=== PATIENT | female | born 1945 | race Caucasian/White ===

== ENCOUNTER → 2023-11-01 11:56 | Outpatient (ROUT) | payer MEDICARE, SELFPAY ==
[2023-11-01 12:18] LABS: Add Manual Diff / Slide Review NO; Basophils Absolute Auto 100 /uL (0-100); Eosinophils Absolute Auto 200 /uL (0-450); Eosinophils Percent Auto 2.3 % (2-4); Hematocrit 32.3 % (36-46); Hemoglobin 10.5 g/dL (12.0-16.0); Lymphocytes Absolute Auto 2100 /uL (1100-4500); Lymphocytes Percent Auto 26.9 % (25-40); Mean Corpuscular HGB Conc 32.6 % (30-36); Mean Corpuscular Hemoglobin 25.3 PG (26-34); Mean Corpuscular Volume 77.5 fL (80-100); Monocytes Absolute Auto 700 /uL (0-900); Monocytes Percent Auto 8.8 % (3-14); Neutrophils Absolute Auto 4700 /uL (1500-7000); Platelet Count 255 X10^3/uL (150-400); Red Blood Cell Count 4.16 X10^6/uL (4.0-5.2); Red Cell Distribution Width 15.9 % (11.6-14.8); White Blood Cell Count 7.7 X10^3/uL (4.5-11.0)
[2023-11-01 12:55] LABS: BUN Creatinine Ratio 16.4 (6-22); Blood Urea Nitrogen 11 mg/dL (7-17); Calcium 8.6 mg/dL (8.4-10.2); Carbon Dioxide 27 mmol/L (22-32); Chloride 97 mmol/L (98-107); Estimated Glomerular Filt Rate > 60 mL/min (>60); Glucose 99 mg/dL (80-110); HEMOLYSIS < 15 (0-50); Sodium 133 mmol/L (137-145)
== END ==
PROVIDERS: Visit Provider Registered Nurse
DX: N17.0 Acute kidney failure with tubular necrosis (principal); D64.9 Anemia, unspecified; E87.6 Hypokalemia
CPT/HCPCS: 36415; 80048; 85025

== ENCOUNTER → 2023-11-23 06:10 | Outpatient (ROUT) | payer MEDICARE, SELFPAY ==
[2023-11-23 07:08] LABS: Add Manual Diff / Slide Review NO; Basophils Absolute Auto 200 /uL (0-100); Basophils Percent Auto 1.9 % (0-2); Eosinophils Absolute Auto 300 /uL (0-450); Eosinophils Percent Auto 3.6 % (2-4); Hematocrit 31.6 % (36-46); Hemoglobin 10.1 g/dL (12.0-16.0); Lymphocytes Absolute Auto 2500 /uL (1100-4500); Mean Corpuscular Hemoglobin 23.8 PG (26-34); Mean Corpuscular Volume 74.4 fL (80-100); Monocytes Absolute Auto 600 /uL (0-900); Monocytes Percent Auto 7.3 % (3-14); Neutrophils Absolute Auto 4700 /uL (1500-7000); Neutrophils Percent Auto 57.2 % (50-75); Platelet Count 231 X10^3/uL (150-400); Red Blood Cell Count 4.24 X10^6/uL (4.0-5.2); Red Cell Distribution Width 16.6 % (11.6-14.8); White Blood Cell Count 8.2 X10^3/uL (4.5-11.0)
[2023-11-23 07:25] LABS: BUN Creatinine Ratio 24.2 (6-22); Blood Urea Nitrogen 16 mg/dL (7-17); Carbon Dioxide 28 mmol/L (22-32); Chloride 99 mmol/L (98-107); Estimated Glomerular Filt Rate > 60 mL/min (>60); Glucose 104 mg/dL (80-110); HEMOLYSIS 39 (0-50); Magnesium 1.7 mg/dL (1.6-2.3); Sodium 134 mmol/L (137-145)
== END ==
PROVIDERS: Visit Provider Registered Nurse
DX: E87.8 Other disorders of electrolyte and fluid balance, not elsewhere classified (principal); D64.9 Anemia, unspecified; R60.9 Edema, unspecified
CPT/HCPCS: 36415; 80048; 83735; 85025

== ENCOUNTER → 2023-12-01 13:38 | Outpatient (CLI) | payer MEDICARE, MEDICAID, SELFPAY ==
--- NOTE | 2023-12-01 13:45 | DI.RAD.S_ITS ---
PROCEDURE: XR HIP W PEL IF DONE EVON MIN 4V INDICATIONS: HIP PAIN TECHNIQUE: AP pelvis with lateral view(s) of the left hip(s). COMPARISON: None. FINDINGS: Bones: Asymmetric severe left hip joint osteoarthritic changes are seen with loss of superior articular space, extensive subchondral sclerosis and cystic changes. Avascular necrosis of left femoral head cannot be excluded. Pelvic ring appears intact. No suspicious bony lesions. Degenerative disc disease in visualized lower lumbar spine is seen. Soft tissues: The visualized bowel gas pattern is normal. No suspicious soft tissue calcifications. IMPRESSION: Asymmetric severe left hip joint osteoarthritis. No acute fracture or dislocation. Cannot rule out avascular necrosis of femoral head. Dictated by: Jayson Chowdhury M.D. on 12/02/2023 at 9:08 Approved by: Jayson Chowdhury M.D. on 12/02/2023 at 9:09
== END ==
PROVIDERS: Referring Provider Nurse Practitioner Family; Visit Provider Nurse Practitioner Family
DX: M16.12 Unilateral primary osteoarthritis, left hip (principal); M25.552 Pain in left hip; M51.36 Other intervertebral disc degeneration, lumbar region
CPT/HCPCS: 73522

== ENCOUNTER → 2023-12-07 14:43 | Outpatient (ROUT) | payer MEDICARE, MEDICAID, SELFPAY ==
[2023-12-07 14:52] LABS: Appearance Urine UA CLEAR; Bilirubin Urine UA NEGATIVE (NEGATIVE); Color Urine UA YELLOW; Glucose Urine UA NEGATIVE (Negative); Ketones Urine UA NEGATIVE (NEGATIVE); Leukocyte Esterase Urine UA NEGATIVE (NEGATIVE); Nitrite Urine UA NEGATIVE (Negative); Occult Blood Urine UA NEGATIVE (Negative); Protein Urine UA NEGATIVE (Negative); Specific Gravity Urine UA <=1.005 (1.000-1.035); Urobilinogen Urine UA 0.2 E.U./dL (0.2)
[2023-12-07 15:02] LABS: Bacteria Urine None Seen; Culture Indicated Urine Cult Not Indicated; RBC Urine None Seen (0-5/HPF); Squamous Epithelial Cell Urine None Seen (0-5/HPF); Urine Volume 10mL (spun); WBC Urine None Seen (0-5/HPF); pH Urine UA 5.5 (4.5-8.0)
== END ==
PROVIDERS: Visit Provider Registered Nurse
DX: F03.90 Unspecified dementia, unspecified severity, without behavioral disturbance, psychotic disturbance, mood disturbance, and anxiety (principal)
CPT/HCPCS: 81001

== ENCOUNTER → 2023-12-21 07:49 | Outpatient (ROUT) | payer MEDICARE, MEDICAID, SELFPAY ==
[2023-12-21 08:21] LABS: Add Manual Diff / Slide Review NO; Basophils Absolute Auto 100 /uL (0-100); Basophils Percent Auto 1.3 % (0-2); Eosinophils Absolute Auto 600 /uL (0-450); Eosinophils Percent Auto 8.4 % (2-4); Hematocrit 29.7 % (36-46); Hemoglobin 9.6 g/dL (12.0-16.0); Lymphocytes Absolute Auto 1900 /uL (1100-4500); Lymphocytes Percent Auto 25.2 % (25-40); Mean Corpuscular HGB Conc 32.4 % (30-36); Mean Corpuscular Hemoglobin 23.3 PG (26-34); Mean Corpuscular Volume 71.9 fL (80-100); Monocytes Absolute Auto 800 /uL (0-900); Monocytes Percent Auto 10.4 % (3-14); Neutrophils Absolute Auto 4000 /uL (1500-7000); Neutrophils Percent Auto 54.7 % (50-75); Platelet Count 274 X10^3/uL (150-400); Red Blood Cell Count 4.13 X10^6/uL (4.0-5.2); Red Cell Distribution Width 16.6 % (11.6-14.8); White Blood Cell Count 7.4 X10^3/uL (4.5-11.0)
[2023-12-21 08:36] LABS: HEMOLYSIS < 15 (0-50)
[2023-12-21 08:46] LABS: Alanine Aminotransferase 12 IU/L (<35); Albumin 3.8 g/dL (3.5-5.0); Albumin Globulin Ratio 1.2 (1.0-2.8); Alkaline Phosphatase 119 U/L (38-126); Aspartate Aminotransferase 17 IU/L (14-36); BUN Creatinine Ratio 16.9 (6-22); Bilirubin Total 0.4 mg/dL (0.2-1.3); Blood Urea Nitrogen 12 mg/dL (7-17); Calcium 9.7 mg/dL (8.4-10.2); Carbon Dioxide 26 mmol/L (22-32); Chloride 101 mmol/L (98-107); Estimated Glomerular Filt Rate > 60 mL/min (>60); Globulin 3.1 g/dL (1.7-4.1); Glucose 127 mg/dL (80-110); Magnesium 1.8 mg/dL (1.6-2.3); Potassium 4.1 mmol/L (3.4-5.1); Sodium 135 mmol/L (137-145); Total Protein 6.9 g/dL (6.3-8.2)
[2023-12-21 11:24] LABS: Folate 13.9 ng/mL (2.76-20.0); Vitamin B12 426 pg/mL (239-931)
== END ==
PROVIDERS: Visit Provider Registered Nurse
DX: D64.9 Anemia, unspecified (principal); R41.0 Disorientation, unspecified; R60.9 Edema, unspecified; R63.5 Abnormal weight gain
CPT/HCPCS: 36415; 80053; 82607; 82746; 83735; 85025

== ENCOUNTER → 2024-01-02 13:41 | Outpatient (CLI) | payer MEDICARE, MEDICAID, SELFPAY ==
--- NOTE | 2024-01-02 13:43 | DI.CT.S_ITS ---
PROCEDURE: CT HIP RIGHT WITHOUT CON INDICATIONS: PAIN BILATERAL HIPS AND RIGHT KNEE TECHNIQUE: Noncontrast 3 mm axial sections acquired through the bony pelvis. Additional 3 mm axial sections acquired through the symptomatic hip joint, with coronal and sagittal reformats. COMPARISON: [facility], CT, CT HIP LEFT WITHOUT CON, 01/02/2024, 13:51. [facility], CR, XR HIP W PEL IF DONE EVON 3TO4V, 12/01/2023, 14:04. [facility], CR, XR PELVIS WITH LATERAL HIP LEFT, 09/04/2023, 6:25. [facility], CR, XR HIP 2 VIEWS LEFT, 08/17/2023, 18:20. [facility], CT, CT ABDOMEN PELVIS WITHOUT CONTRAST, 08/15/2023, 12:36. [facility], CR, XR HIP 2 VIEWS LEFT, 04/04/2022, 15:27. FINDINGS: Image quality: Excellent; please note that the following report is being dictated for both hips. Bones: No acute fracture or dislocation. 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 Sclerosis, subchondral cyst formation and mild subchondral collapse at the superolateral portion of the left femoral head (; ). Joints: Mild right hip osteoarthritis without a significant joint effusion. Severe left hip osteoarthritis with a moderate joint effusion. Mild bilateral sacroiliac joint and pubic symphysis osteoarthritis. Muscles: Moderate fatty atrophy of the visualized lower paraspinal musculature and the bilateral gluteus minimus musculature on (greater on the left; 3/37). Mild asymmetric atrophy of the left adductor longus (3/104). Tendons: Mild enthesopathy at the origin of the hamstring tendons greater on the right (3/85). Vessels: Moderate aortoiliac atherosclerosis. No aneurysmal dilatation of the visualized vasculature. Lymph nodes: No bilateral inguinal or lower retroperitoneal lymphadenopathy. Other soft tissues: The bilateral sciatic nerve contours are within normal limits. Other: Severe bony central canal stenosis at L3-L4 and L4-L5 (06/14-). The visualized intrapelvic contents are within normal limits. IMPRESSION: 1. 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 2. Cam morphology of the right proximal femur with secondary mild hip osteoarthritis. 3. Other chronic findings, noted above, including severe bony central canal stenosis at L3-L4 and L4-L5. Dictated by: Manpreet Dutton M.D. on 01/03/2024 at 12:45 Approved by: Manpreet Dutton M.D. on 01/03/2024 at 13:00
--- NOTE | 2024-01-02 13:43 | DI.CT.S_ITS ---
PROCEDURE: CT KNEE RIGHT WITHOUT CON INDICATIONS: PAIN BILATERAL HIPS AND RIGHT KNEE TECHNIQUE: Noncontrast 1-1.5 mm axial sections acquired from the mid-patella to the proximal tibia, with coronal and sagittal reformats. COMPARISON: None. FINDINGS: Image quality: Excellent. Bones: No acute fracture or dislocation of the right knee. Mild medial compartment predominant tricompartment osteoarthritis. Multiple small ossified intra-articular bodies in the anterior intercondylar notch, and in the posterior knee. Soft tissues: Large knee effusion. No popliteal cyst. Mild fatty atrophy of the posterior compartment of the distal thigh. Mild subcutaneous edema and skin thickening of the distal thigh. IMPRESSION: Mild medial compartment predominant tricompartment osteoarthritis. Multiple small ossified intra-articular bodies. Large knee effusion. Dictated by: Nerissa Villanueva M.D. on 01/03/2024 at 11:40 Approved by: Nerissa Villanueva M.D. on 01/03/2024 at 11:44
--- NOTE | 2024-01-02 13:43 | DI.CT.S_ITS ---
PROCEDURE: CT HIP LEFT WITHOUT CON INDICATIONS: PAIN BILATERAL HIPS AND RIGHT KNEE TECHNIQUE: Noncontrast 3 mm axial sections acquired through the bony pelvis. Additional 3 mm axial sections acquired through the symptomatic hip joint, with coronal and sagittal reformats. COMPARISON: [facility], CT, CT HIP RIGHT WITHOUT CON, 01/02/2024, 13:51. FINDINGS: Image quality: Excellent. Please see the CT right hip without contrast report for combined details regarding the CT hip exams. IMPRESSION: Please see the CT right hip without contrast report for combined details regarding the CT hip exams. Dictated by: Manpreet Dutton M.D. on 01/03/2024 at 13:00 Approved by: Manpreet Dutton M.D. on 01/03/2024 at 13:02
== END ==
PROVIDERS: Referring Provider Nurse Practitioner Family; Visit Provider Nurse Practitioner Family
DX: M16.0 Bilateral primary osteoarthritis of hip (principal); M17.11 Unilateral primary osteoarthritis, right knee; M25.461 Effusion, right knee; M25.452 Effusion, left hip; M46.1 Sacroiliitis, not elsewhere classified; I70.0 Atherosclerosis of aorta; M48.061 Spinal stenosis, lumbar region without neurogenic claudication; M25.551 Pain in right hip; M25.552 Pain in left hip; M25.561 Pain in right knee
CPT/HCPCS: 73700

== ENCOUNTER → 2024-01-18 06:28 | Outpatient (ROUT) | payer MEDICARE, MEDICAID, SELFPAY ==
[2024-01-18 08:22] LABS: Alanine Aminotransferase 14 IU/L (<35); Albumin 4.2 g/dL (3.5-5.0); Albumin Globulin Ratio 1.4 (1.0-2.8); Alkaline Phosphatase 143 U/L (38-126); Aspartate Aminotransferase 21 IU/L (14-36); BUN Creatinine Ratio 15.9 (6-22); Bilirubin Total 0.4 mg/dL (0.2-1.3); Blood Urea Nitrogen 10 mg/dL (7-17); Calcium 9.4 mg/dL (8.4-10.2); Carbon Dioxide 29 mmol/L (22-32); Chloride 96 mmol/L (98-107); Estimated Glomerular Filt Rate > 60 mL/min (>60); Globulin 2.9 g/dL (1.7-4.1); Glucose 127 mg/dL (80-110); HEMOLYSIS < 15 (0-50); Potassium 3.4 mmol/L (3.4-5.1); Sodium 134 mmol/L (137-145); Total Protein 7.1 g/dL (6.3-8.2)
== END ==
PROVIDERS: Visit Provider Registered Nurse
DX: R60.9 Edema, unspecified (principal)
CPT/HCPCS: 36415; 80053

== ENCOUNTER → 2024-03-21 06:30 | Outpatient (ROUT) | payer MEDICARE, MEDICAID, SELFPAY ==
[2024-03-21 08:26] LABS: BUN Creatinine Ratio 31.4 (6-22); Blood Urea Nitrogen 22 mg/dL (7-17); Calcium 9.6 mg/dL (8.4-10.2); Carbon Dioxide 32 mmol/L (22-32); Chloride 92 mmol/L (98-107); Estimated Glomerular Filt Rate > 60 mL/min (>60); Glucose 120 mg/dL (80-110); HEMOLYSIS < 15 (0-50); Sodium 133 mmol/L (137-145)
== END ==
PROVIDERS: Visit Provider Registered Nurse
DX: R60.9 Edema, unspecified (principal)
CPT/HCPCS: 36415; 80048

== ENCOUNTER → 2024-04-11 06:24 | Outpatient (ROUT) | payer MEDICARE, MEDICAID, SELFPAY ==
[2024-04-11 08:48] LABS: HEMOLYSIS < 15 (0-50); Magnesium 1.9 mg/dL (1.6-2.3); Potassium 2.9 mmol/L (3.4-5.1)
== END ==
PROVIDERS: Visit Provider Registered Nurse
DX: G31.84 Mild cognitive impairment of uncertain or unknown etiology (principal); M16.12 Unilateral primary osteoarthritis, left hip; M17.11 Unilateral primary osteoarthritis, right knee; F44.5 Conversion disorder with seizures or convulsions; K21.9 Gastro-esophageal reflux disease without esophagitis; K92.2 Gastrointestinal hemorrhage, unspecified
CPT/HCPCS: 36415; 83735; 84132

== ENCOUNTER → 2024-04-18 08:17 | Outpatient (ROUT) | payer MEDICARE, MEDICAID, SELFPAY ==
[2024-04-18 08:38] LABS: HEMOLYSIS < 15 (0-50); Magnesium 1.5 mg/dL (1.6-2.3)
== END ==
PROVIDERS: Visit Provider Registered Nurse
DX: E87.6 Hypokalemia (principal)
CPT/HCPCS: 36415; 83735; 84132

== ENCOUNTER → 2024-04-25 06:11 | Outpatient (ROUT) | payer MEDICARE, MEDICAID, SELFPAY ==
[2024-04-25 07:45] LABS: Hematocrit 29.9 % (36-46); Hemoglobin 9.5 g/dL (12.0-16.0); Mean Corpuscular HGB Conc 31.6 % (30-36); Mean Corpuscular Hemoglobin 22.8 PG (26-34); Mean Corpuscular Volume 72.1 fL (80-100); Platelet Count 254 X10^3/uL (150-400); Red Blood Cell Count 4.15 X10^6/uL (4.0-5.2); Red Cell Distribution Width 17.4 % (11.6-14.8); White Blood Cell Count 7.8 X10^3/uL (4.5-11.0)
[2024-04-25 08:00] LABS: BUN Creatinine Ratio 26.8 (6-22); Blood Urea Nitrogen 19 mg/dL (7-17); Calcium 9.5 mg/dL (8.4-10.2); Carbon Dioxide 32 mmol/L (22-32); Chloride 101 mmol/L (98-107); Estimated Glomerular Filt Rate > 60 mL/min (>60); Glucose 103 mg/dL (80-110); HEMOLYSIS < 15 (0-50); Magnesium 1.8 mg/dL (1.6-2.3); Potassium 3.6 mmol/L (3.4-5.1); Sodium 138 mmol/L (137-145)
[2024-04-25 08:29] LABS: Thyroid Stimulating Hormone 3.09 uIU/mL (0.47-4.68)
[2024-04-25 09:05] LABS: Folate 14.6 ng/mL (2.76-20.0)
== END ==
PROVIDERS: Visit Provider Registered Nurse
DX: F03.90 Unspecified dementia, unspecified severity, without behavioral disturbance, psychotic disturbance, mood disturbance, and anxiety (principal)
CPT/HCPCS: 36415; 80048; 82746; 83735; 84443; 85027

== ENCOUNTER → 2024-05-23 06:13 | Outpatient (ROUT) | payer MEDICARE, MEDICAID, SELFPAY ==
[2024-05-23 08:10] LABS: BUN Creatinine Ratio 31.8 (6-22); Blood Urea Nitrogen 21 mg/dL (7-17); Calcium 9.3 mg/dL (8.4-10.2); Carbon Dioxide 34 mmol/L (22-32); Chloride 92 mmol/L (98-107); Estimated Glomerular Filt Rate > 60 mL/min (>60); Glucose 110 mg/dL (80-110); HEMOLYSIS < 15 (0-50); Magnesium 1.8 mg/dL (1.6-2.3); Sodium 135 mmol/L (137-145)
== END ==
PROVIDERS: Visit Provider Registered Nurse
DX: R60.9 Edema, unspecified (principal)
CPT/HCPCS: 36415; 80048; 83735

== ENCOUNTER 2024-05-26 14:20 | Emergency (ER) | payer MEDICARE, MEDICAID, SELFPAY ==
[2024-05-26] VITALS (12 sets, daily range): BP systolic 121–169; BP diastolic 60–88; PULSE 78–95; RESP 16–27; TEMP 36.7–36.8; O2SAT 91–100; BMI 34.3
--- NOTE | 2024-05-26 14:26 | EKG_ITS ---
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
--- NOTE | 2024-05-26 14:26 | DI.RAD.S_ITS ---
PROCEDURE: XR CHEST 1V INDICATIONS: chest pain TECHNIQUE: One view of the chest was acquired. COMPARISON: [facility], CR, XR CHEST 1 VIEW, 08/15/2023, 18:58. [facility], CR, XR CHEST 1 VIEW, 08/17/2023, 8:47. FINDINGS: Surgical changes and devices: None. Lungs and pleura: Low lung volumes are noted. This causes a crowded appearance to the lung markings and limits evaluation. Mild interstitial prominence is seen. No pneumothorax or large pleural effusion can be seen. Mediastinum: The cardiac contours are moderately enlarged. The aorta demonstrates calcification and tortuosity. Bones and chest wall: No suspicious bony lesions. Age-appropriate bony degenerative changes are seen. Overlying soft tissues appear unremarkable. IMPRESSION: Cardiomegaly with interstitial prominence. Please consider CHF. Low lung volumes is seen, which limits evaluation. Dictated by: Guillermo Arzate M.D. on 05/26/2024 at 13:47 Approved by: Guillermo Arzate M.D. on 05/26/2024 at 13:48
[2024-05-26 14:49] LABS: Prothrombin Time 11.6 SECONDS (9.4-12.5)
[2024-05-26 14:52] LABS: PTT Partial Thromboplastin Tim 23 SECONDS (25.1-36.5)
[2024-05-26 14:56] LABS: Add Manual Diff / Slide Review NO; Basophils Absolute Auto 100 /uL (0-100); Basophils Percent Auto 1.1 % (0-2); Eosinophils Absolute Auto 200 /uL (0-450); Eosinophils Percent Auto 2.4 % (2-4); Hematocrit 31.9 % (36-46); Lymphocytes Absolute Auto 2000 /uL (1100-4500); Lymphocytes Percent Auto 19.9 % (25-40); Mean Corpuscular HGB Conc 31.5 % (30-36); Mean Corpuscular Hemoglobin 22.7 PG (26-34); Mean Corpuscular Volume 71.9 fL (80-100); Monocytes Absolute Auto 700 /uL (0-900); Monocytes Percent Auto 6.5 % (3-14); Neutrophils Absolute Auto 7100 /uL (1500-7000); Neutrophils Percent Auto 70.1 % (50-75); Red Blood Cell Count 4.43 X10^6/uL (4.0-5.2); Red Cell Distribution Width 17.1 % (11.6-14.8); White Blood Cell Count 10.1 X10^3/uL (4.5-11.0)
[2024-05-26 14:58] LABS: Alanine Aminotransferase 17 IU/L (<35); Albumin 4.5 g/dL (3.5-5.0); Albumin Globulin Ratio 1.2 (1.0-2.8); Alkaline Phosphatase 108 U/L (38-126); BUN Creatinine Ratio 25.6 (6-22); Bilirubin Total 0.4 mg/dL (0.2-1.3); Blood Urea Nitrogen 21 mg/dL (7-17); Calcium 9.4 mg/dL (8.4-10.2); Carbon Dioxide 27 mmol/L (22-32); Chloride 104 mmol/L (98-107); Creatine Kinase 89 U/L (30-135); Estimated Glomerular Filt Rate > 60 mL/min (>60); Globulin 3.7 g/dL (1.7-4.1); Glucose 108 mg/dL (80-110); Lipase 52 U/L (23-300); Magnesium 1.8 mg/dL (1.6-2.3); Sodium 140 mmol/L (137-145); Total Protein 8.2 g/dL (6.3-8.2)
[2024-05-26 15:00] LABS: Aspartate Aminotransferase 35 IU/L (14-36); HEMOLYSIS 73 (0-50); Platelet Count 266 X10^3/uL (150-400)
[2024-05-26 15:01] LABS: Potassium 4.6 mmol/L (3.4-5.1)
[2024-05-26 15:09] LABS: NT-proBNP (BNP-Adult 18+) 257 pg/mL (<450); Troponin I < 0.012 ng/mL (0.01-0.034)
--- NOTE | 2024-05-26 15:31 | ED_ITS ---
HPI - Chest Pain General Chief Complaint: Chest Pain Stated Complaint: painful urination/not acting herself/EMS Time Seen by Provider: 05/26/24 15:30 Source: patient and EMS Mode of arrival: EMS History of Present Illness HPI narrative: Patient is an 79-year-old female presenting to day from [facility] facility staff reports that she has not been acting herself more verbally combative she does have a history of UTIs. Patient does have some obvious shortness of breath which she declined. Patient reports that she was here because she is a pain. She does report that she was lower extremity edema she might have some increasing shortness of breath. She has not been here before but according to her med list she was on torsemide and albuterol as needed. Related Data Home Medications Medication Instructions Recorded Confirmed Unobtainable 12/18/23 12/18/23 Allergies Allergy/AdvReac Type Severity Reaction Status Date / Time No Known Drug Allergies Allergy Unverified 12/18/23 11:17 Patient History Social History Smoking Status: Smoker, status unknown Smoking Status: Smoker, status unknown Exam Initial Vital Signs Initial Vital Signs: Vital Signs Temperature 98.3 F 05/26/24 14:20 Pulse Rate 88 05/26/24 14:20 Respiratory Rate 16 05/26/24 14:20 Blood Pressure 123/60 05/26/24 14:20 Pulse Oximetry 97 05/26/24 14:20 Oxygen Delivery Method Room Air 05/26/24 14:20 GENERAL: Alert spicy 79-year-old female and in [no acute] distress. HEENT: Head atraumatic,EOMI, pupils reactive, face symmetric, [moist] mucous membranes CARDIOVASCULAR: Regular rate and rhythm without murmurs, rubs or gallops. RESPIRATORY: Breath sounds equal bilaterally, no wheezes rales or rhonchi. ABDOMEN: Soft, nontender. Normoactive bowel sounds all 4 quadrants. No guarding or rebound. EXTREMITIES: Normal range of motion, no clubbing. Bilateral +1 pitting edema Neurovascularly intact NEUROLOGICAL: Alert and oriented x4.Normal gait and speech. Cranial nerves II through XII grossly intact. [Good [id number], good [id number], strength equal bilaterally, no dysarthria or aphasia, sensation in tact to soft touch bilaterally, no visual changes, no facial droop] SKIN: Extremity dry legs some splotchy erythema very small areas Course Orders Ordered: ED Orders 05/26/24 14:26 XR chest 1V Stat EKG-12 Lead Stat 05/26/24 14:32 Complete Blood Count AUTO DIFF Stat Comprehensive Metabolic Panel Stat Lipase Stat Magnesium Stat NT-proBNP (BNP-Adult 18+) Stat PTT Partial Thromboplastin Magan Stat Prothrombin Time INR Stat Troponin & CK Cardiac Panel Stat Discontinued Medications Albuterol/Ipratropium (Albuterol/Ipratropium 3 Ml Ampul) 3 ml INH NOW ONE Stop: 05/26/24 16:06 Last Admin: 05/26/24 16:14 Dose: 3 ml Documented By: APRIL Aspirin (Aspirin 81 Mg Chew Tab) 324 mg PO NOW ONE Stop: 05/26/24 14:27 Last Admin: 05/26/24 14:37 Dose: Not Given Documented By: Furosemide (Furosemide 40 Mg/4 Ml Vial) 20 mg IV NOW ONE Stop: 05/26/24 15:32 Last Admin: 05/26/24 15:54 Dose: Not Given Documented By: BECKIE Torsemide (Torsemide 10 Mg Tablet) 40 mg PO NOW ONE Stop: 05/26/24 16:05 Last Admin: 05/26/24 16:19 Dose: 40 mg Documented By: BECKIE Vital Signs Vital signs: Vital Signs - 8 hr 05/26/24 14:20 05/26/24 14:22 05/26/24 14:23 Temperature 98.3 F Pulse Rate 88 92 H Respiratory Rate 16 Blood Pressure 123/60 123/60 Pulse Oximetry 97 96 Oxygen Delivery Method Room Air 05/26/24 14:23 05/26/24 14:47 05/26/24 14:53 Temperature Pulse Rate 92 H 93 H 93 H Respiratory Rate 27 H Blood Pressure Pulse Oximetry 95 97 Oxygen Delivery Method 05/26/24 14:53 05/26/24 15:12 05/26/24 15:13 Temperature Pulse Rate 93 H Respiratory Rate Blood Pressure 169/67 H 124/88 Pulse Oximetry 91 Oxygen Delivery Method 05/26/24 15:13 05/26/24 15:30 05/26/24 15:31 Temperature Pulse Rate 93 H 95 H Respiratory Rate 24 Blood Pressure 157/69 H Pulse Oximetry 97 94 Oxygen Delivery Method 05/26/24 15:31 05/26/24 16:00 05/26/24 16:22 Temperature Pulse Rate 95 H 90 90 Respiratory Rate 21 16 Blood Pressure Pulse Oximetry 95 95 96 Oxygen Delivery Method Room Air 05/26/24 17:24 Temperature 98.1 F Pulse Rate 78 Respiratory Rate 20 Blood Pressure 121/76 Pulse Oximetry 100 Oxygen Delivery Method Room Air MDM - Chest Pain Lab Data 05/26/24 14:32 05/26/24 14:32 Labs: Lab Results 05/26/24 Range/Units 14:32 WBC 10.1 (4.5-11.0) X10^3/uL RBC 4.43 (4.0-5.2) X10^6/uL Hgb 10.0 L (12.0-16.0) g/dL Hct 31.9 L (36-46) % MCV 71.9 L (80-100) fL MCH 22.7 L (26-34) PG MCHC 31.5 (30-36) % RDW 17.1 H (11.6-14.8) % Plt Count 266 (150-400) X10^3/uL Neut % (Auto) 70.1 (50-75) % Lymph % (Auto) 19.9 L (25-40) % Barnes % (Auto) 6.5 (3-14) % Eos % (Auto) 2.4 (2-4) % Baso % (Auto) 1.1 (0-2) % Neut # (Auto) 7100 H (3246-6592) /uL Lymph # (Auto) 2000 (8780-5755) /uL Barnes # (Auto) 700 (0-900) /uL Eos # (Auto) 200 (0-450) /uL Baso # (Auto) 100 (0-100) /uL PT 11.6 (9.4-12.5) SECONDS INR 1.0 (0.9-1.3) APTT 23 L (25.1-36.5) SECONDS Sodium 140 (137-145) mmol/L Potassium 4.6 D (3.4-5.1) mmol/L Chloride 104 (98-107) mmol/L Carbon Dioxide 27 (22-32) mmol/L BUN 21 H (7-17) mg/dL Creatinine 0.82 (0.52-1.04) mg/dL Estimated GFR > 60 (>60) mL/min BUN/Creatinine Ratio 25.6 H (6-22) Glucose 108 (80-110) mg/dL Calcium 9.4 (8.4-10.2) mg/dL Magnesium 1.8 (1.6-2.3) mg/dL Total Bilirubin 0.4 (0.2-1.3) mg/dL AST 35 (14-36) IU/L ALT 17 (<35) IU/L Alkaline Phosphatase 108 (38-126) U/L Total Creatine Kinase 89 (30-135) U/L Troponin I < 0.012 (0.01-0.034) ng/mL NT-Pro-B Natriuret Pep 257 (<450) pg/mL Total Protein 8.2 (6.3-8.2) g/dL Albumin 4.5 (3.5-5.0) g/dL Globulin 3.7 (1.7-4.1) g/dL Albumin/Globulin Ratio 1.2 (1.0-2.8) Lipase 52 (23-300) U/L Urine Dip Bedside Urine Glucose Negative Bedside Urine Bilirubin - Negative Bedside Urine Ketone - Negative Urine Specific [place] 1.015 Bedside Urine Occult Blood - Negative Bedside Urine pH 6.0 Bedside Urine Protein - Negative Bedside Urine Urobilinogen - Negative Bedside Urine Nitrite - Negative Bedside Urine Leukocytes - Negative Esterase Imaging Data Chest x-ray: Radiologist's Impression: PROCEDURE: XR CHEST 1V INDICATIONS: chest pain TECHNIQUE: One view of the chest was acquired. COMPARISON: [facility], CR, XR CHEST 1 VIEW, 08/15/2023, 18:58. [facility], CR, XR CHEST 1 VIEW, 08/17/2023, 8:47. FINDINGS: Surgical changes and devices: None. Lungs and pleura: Low lung volumes are noted. This causes a crowded appearance to the lung markings and limits evaluation. Mild interstitial prominence is seen. No pneumothorax or large pleural effusion can be seen. Mediastinum: The cardiac contours are moderately enlarged. The aorta demonstrates calcification and tortuosity. Bones and chest wall: No suspicious bony lesions. Age-appropriate bony degenerative changes are seen. Overlying soft tissues appear unremarkable. IMPRESSION: Cardiomegaly with interstitial prominence. Please consider CHF. Low lung volumes is seen, which limits evaluation. Dictated by: Guillermo Arzate M.D. on 05/26/2024 at 13:47 MDM Narrative Medical decision making narrative: Patient 79-year-old female resides at [facility]. Has not been here before. However according to med list she does take torsemide for edema she is on spironolactone as well. Also takes albuterol she reports having some shortness of breath but no chest pain. She is now quite anxious and wanting to go home. Not really sure why she was here. Blood work has been reviewed: No leukocytosis no anemia, no electrolyte abnormality creatinine 0.82 Troponin negative, BNP 257 Urinalysis negative for UTI Chest x-ray reviewed shows cardiomegaly and consider CHF EKGs does not show any evidence of ischemia I did call patient's DPOA Maame [phone]. She reports that patient was a little bit angry today she thought she might have a UTI. I have updated her on test results no evidence of UTI or abnormality. She was aware that patient is going back to [facility]. Discharge Plan Departure Patient Disposition: Home Clinical Impression: Bilateral edema of lower extremity Instructions: DI for Peripheral Edema -- Bilateral Activity Restrictions/Additional Instructions: *You have been diagnosed with lower extremity edema *What to do: At this time elevate your legs as much as possible No evidence of UTI *Continue to take medications as directed Take all of your medications as prescribed, you did get 1 extra dose of torsemide here in the ED *Follow up with your primary care provider in 2-3 days or call [phone] *Return to ER if you should have increasing confusion chest pain difficulty breathing or any new, worsening or concerning symptoms Prescriptions: No Action Unobtainable Stand Alone Forms: Patient Portal/API/Survey
[2024-05-26] MEDS: ALBUTEROL/IPRATROPIUM 3 ML AMPUL INH (16:14)
[2024-05-26] MEDS: TORSEMIDE 10 MG TABLET 40 MG PO (16:19)
--- NOTE | 2024-05-26 16:39 | PC.NURSE ---
Agnieszka refused to order picker pt; attempted to contact pt's POA = no answer. Pt confused; attempting BLS transport home.
--- NOTE | 2024-05-26 16:53 | PC.NURSE ---
Pt reports SOB, feet itching, hx of uti, edema in lower extremities .. unable to reach [facility] for further collateral. Pt ambulates short distances with minimal assistance. GCS 14-- pt alert to person place. Unaware of date.
== END 2024-05-26 17:35 | disposition home or self-care (01) ==
PROVIDERS: Emergency Provider Emergency Medicine
DX: R60.0 Localized edema (principal); R06.02 Shortness of breath; I51.7 Cardiomegaly
CPT/HCPCS: 36415; 71045; 80053; 81003; 82550; 83690; 83735; 83880; 84484; 85025; 85610; 85730; 93005; 93010; 94640; 99284; J1940

== ENCOUNTER 2024-05-28 19:16 | Emergency (ER) | payer MEDICARE, MEDICAID, SELFPAY ==
[2024-05-28 19:17] VITALS: BP 161/69; PULSE 80; RESP 20; TEMP 36.8; O2SAT 92; BMI 34.7
[2024-05-28] MEDS: ONDANSETRON 4 MG/2 ML INJ IV (19:55)
[2024-05-28 20:04] LABS: Add Manual Diff / Slide Review NO; Basophils Absolute Auto 100 /uL (0-100); Basophils Percent Auto 0.9 % (0-2); Eosinophils Absolute Auto 100 /uL (0-450); Eosinophils Percent Auto 1.5 % (2-4); Hematocrit 31.9 % (36-46); Lymphocytes Absolute Auto 1500 /uL (1100-4500); Lymphocytes Percent Auto 15.3 % (25-40); Mean Corpuscular HGB Conc 31.2 % (30-36); Mean Corpuscular Hemoglobin 22.5 PG (26-34); Mean Corpuscular Volume 72.1 fL (80-100); Monocytes Absolute Auto 800 /uL (0-900); Monocytes Percent Auto 8.1 % (3-14); Neutrophils Absolute Auto 7400 /uL (1500-7000); Neutrophils Percent Auto 74.2 % (50-75); Platelet Count 265 X10^3/uL (150-400); Red Blood Cell Count 4.43 X10^6/uL (4.0-5.2); White Blood Cell Count 9.9 X10^3/uL (4.5-11.0)
[2024-05-28 20:07] LABS: Alanine Aminotransferase 17 IU/L (<35); Albumin 4.5 g/dL (3.5-5.0); Albumin Globulin Ratio 1.2 (1.0-2.8); Alkaline Phosphatase 108 U/L (38-126); Aspartate Aminotransferase 30 IU/L (14-36); BUN Creatinine Ratio 22.4 (6-22); Bilirubin Total 0.4 mg/dL (0.2-1.3); Blood Urea Nitrogen 19 mg/dL (7-17); Calcium 9.3 mg/dL (8.4-10.2); Carbon Dioxide 30 mmol/L (22-32); Chloride 102 mmol/L (98-107); Estimated Glomerular Filt Rate > 60 mL/min (>60); Globulin 3.7 g/dL (1.7-4.1); Glucose 108 mg/dL (80-110); HEMOLYSIS 35 (0-50); Potassium 4.3 mmol/L (3.4-5.1); Sodium 140 mmol/L (137-145); Total Protein 8.2 g/dL (6.3-8.2)
[2024-05-28 20:29] VITALS: PULSE 97; RESP 16; O2SAT 92
[2024-05-28 20:30] VITALS: BP 184/72; PULSE 93; RESP 16; O2SAT 92
--- NOTE | 2024-05-28 20:48 | ED_ITS ---
HPI - Altered Mental Status General Chief Complaint: Altered Mental Status Stated Complaint: AMS Time Seen by Provider: 05/28/24 20:48 Source: EMS Mode of arrival: EMS History of Present Illness HPI narrative: 79-year-old female brought in from facility via EMS for possible seizure-like activity. According to the staff at [facility] they state that they saw her with jerking like movements for 30 seconds unsure if she was just ?sleeping or if she was having seizure-like activity. States it lasted no more than 30 seconds according to medics they were told that she came right back to, no confusion after back to baseline, at time of evaluation patient not complaining of any headache visual disturbances chest pain shortness breath fever chills nausea vomiting abdominal pain or any other GI/ symptoms. She actually states that she feels ?drunk but denies drinking any alcohol. Related Data Home Medications Medication Instructions Recorded Confirmed Unobtainable 12/18/23 12/18/23 Allergies Allergy/AdvReac Type Severity Reaction Status Date / Time No Known Drug Allergies Allergy Unverified 12/18/23 11:17 Review of Systems Review of Systems Narrative: General: Positive seizure-like activity, Denies fever, chills, weight loss HEENT: Denies headache, eye drainage, eye irritation, head trauma, sore throat, voice change Cardiovascular: Denies any chest pain, palpitations, shortness of breath, tachycardia Respiratory: Denies any shortness of breath, cough, wheeze, stridor GI/: Denies any abdominal pain, nausea, vomiting, diarrhea, bright red blood per rectum, melanotic stools, urinary frequency, urinary retention, dysuria, hematuria MSK: Denies any joint pain, muscle pains, swelling Skin: Denies any rashes, lesions, discoloration Neuro: Denies any headache, lightheadedness, dizziness, fainting, weakness Psych: Denies SI/HI Patient History Social History Smoking Status: Never smoker Smoking Status: Never smoker Exam Narrative Exam Narrative: General: Cooperative, comfortable, well-developed, not in acute distress HEENT: Normocephalic, atraumatic, PERRLA, normal sclera, eyelids normal, Neck: Active full range of motion, atraumatic Chest: Normal to inspection, negative crepitus, no overlying erythema ecchymosis Respiratory: Normal respiratory effort, not in acute respiratory distress, clear to auscultation bilaterally negative cough, wheeze, tachypnea, rhonchi, rales Cardiology: Regular rate rhythm negative gallop, murmur, rubs GI/: Normal to inspection, soft, nonrigid, no tenderness to palpation, exam deferred MSK: Full range of active range of motion of all 4 extremities, atraumatic Skin: No rashes lesions noted Neuro: NIH of 0 no focal deficits noted Alert awake oriented x3, moves all 4 extremities spontaneously, cranial nerves intact, able to answer all questions appropriately follows commands appropriately Psych: Cooperative, negative suicidal or homicidal ideations Initial Vital Signs Initial Vital Signs: Vital Signs Temperature 98.2 F 05/28/24 19:17 Pulse Rate 80 05/28/24 19:17 Respiratory Rate 20 05/28/24 19:17 Blood Pressure 161/69 H 05/28/24 19:17 Pulse Oximetry 92 05/28/24 19:17 Oxygen Delivery Method Room Air 05/28/24 19:17 Course Orders Ordered: ED Orders 05/28/24 19:45 CBC Auto Diff [Complete Blood Count AUTO DIFF] Stat Comprehensive Metabolic Panel Stat 05/28/24 20:35 UA Complete [Urinalysis and Microscopic] Stat Discontinued Medications Ondansetron HCl (Ondansetron 4 Mg/2 Ml Inj) 4 mg IV NOW ONE Stop: 05/28/24 19:51 Last Admin: 05/28/24 19:55 Dose: 4 mg Documented By: LS Vital Signs Vital signs: Vital Signs - 8 hr 05/28/24 19:17 05/28/24 20:29 05/28/24 20:30 Temperature 98.2 F Pulse Rate 80 97 H 93 H Respiratory Rate 20 16 16 Blood Pressure 161/69 H Pulse Oximetry 92 92 92 Oxygen Delivery Method Room Air 05/28/24 20:30 Temperature Pulse Rate Respiratory Rate Blood Pressure 184/72 H Pulse Oximetry Oxygen Delivery Method MDM - Altered Mental Status Differential Diagnosis Differential diagnosis: Likely sepsis (Electrolyte abnormality, urinary tract infection,) Lab Data 05/28/24 19:45 05/28/24 19:45 Labs: Lab Results 05/28/24 05/28/24 Range/Units 19:45 20:35 WBC 9.9 (4.5-11.0) X10^3/uL RBC 4.43 (4.0-5.2) X10^6/uL Hgb 10.0 L (12.0-16.0) g/dL Hct 31.9 L (36-46) % MCV 72.1 L (80-100) fL MCH 22.5 L (26-34) PG MCHC 31.2 (30-36) % RDW 17.0 H (11.6-14.8) % Plt Count 265 (150-400) X10^3/uL Neut % (Auto) 74.2 (50-75) % Lymph % (Auto) 15.3 L (25-40) % [place] % (Auto) 8.1 (3-14) % Eos % (Auto) 1.5 L (2-4) % Baso % (Auto) 0.9 (0-2) % Neut # (Auto) 7400 H (2329-6348) /uL Lymph # (Auto) 1500 (8412-5624) /uL [place] # (Auto) 800 (0-900) /uL Eos # (Auto) 100 (0-450) /uL Baso # (Auto) 100 (0-100) /uL Sodium 140 (137-145) mmol/L Potassium 4.3 (3.4-5.1) mmol/L Chloride 102 (98-107) mmol/L Carbon Dioxide 30 (22-32) mmol/L BUN 19 H (7-17) mg/dL Creatinine 0.85 (0.52-1.04) mg/dL Estimated GFR > 60 (>60) mL/min BUN/Creatinine Ratio 22.4 H (6-22) Glucose 108 (80-110) mg/dL Calcium 9.3 (8.4-10.2) mg/dL Total Bilirubin 0.4 (0.2-1.3) mg/dL AST 30 (14-36) IU/L ALT 17 (<35) IU/L Alkaline Phosphatase 108 (38-126) U/L Total Protein 8.2 (6.3-8.2) g/dL Albumin 4.5 (3.5-5.0) g/dL Globulin 3.7 (1.7-4.1) g/dL Albumin/Globulin Ratio 1.2 (1.0-2.8) Urine Color Yellow Urine Appearance Clear Urine pH 6.0 (4.5-8.0) Ur Specific [place] 1.010 (1.000-1.035) Urine Protein Negative (Negative) Urine Glucose (UA) Negative (Negative) g/dL Urine Ketones Negative (NEGATIVE) Urine Occult Blood Negative (Negative) Urine Nitrate Negative (Negative) Urine Bilirubin Negative (NEGATIVE) Urine Urobilinogen 0.2 (0.2) E.U./dL Ur Leukocyte Esterase Negative (NEGATIVE) Urine RBC None seen (0-5/HPF) Urine WBC None seen (0-5/HPF) Ur Squamous Epith Cells 0-1 /hpf (0-5/HPF) Urine Bacteria None seen (None) Ur Culture Indicated? Cult not indicated Vol Urine Centrifuged 10ml (spun) MDM Narrative Medical decision making narrative: 79-year-old female without any significant past medical history is brought into the ED from facility via EMS for possible seizure-like activity according to the medics they were called because patient appeared to be jerking for less than 30 seconds, they state that at that time she was sleeping, she awoke immediately was back to baseline no focal deficits, at initial evaluation here patient well- appearing nontoxic A&O x4 answering all questions appropriately she states that she feels fine not complaining of any symptoms such as headache visual disturbances chest pain shortness breath fever chills nausea vomiting abdominal pain or any other GI/ some time. Lab work unremarkable, urinalysis was performed and did not show any acute urinary tract infection, given history physical exam I have a very low suspicion that patient had seizure/seizure-like activity, additional lab work and imaging would not prove to be beneficial at this time, I did talk to the patient in regards to additional lab work or imaging however she states that she feels fine and would rather go back home to get some rest. She was given strict return precautions he verbalized understanding of this and agrees to being discharged home with outpatient follow up Discharge Plan Departure Patient Disposition: Home Clinical Impression: Normal exam Activity Restrictions/Additional Instructions: Please follow up with her primary care doctor Please read the discharge instructions sheet carefully and bring all papers to all doctor follow-up visits, as it may contain information that your doctor may want to see. Disease processes change and evolve, if your symptoms worsen or if you develop any new symptoms that are concerning to you please return for evaluation. Your evaluation today does not show any evidence of any life- threatening/serious illnesses requiring admission to the hospital or surgery. Please follow-up with your doctor for re-evaluation in approximately 1 day. Seek immediate medical attention for any worrisome symptoms. *If you do not have a primary care provider please contact the [facility] Resource line at [phone]. They will ask some questions about your medical history and help get you set up with a doctor in the community. Prescriptions: No Action Unobtainable Stand Alone Forms: Patient Portal/API/Survey
[2024-05-28 20:55] LABS: Appearance Urine UA CLEAR; Bilirubin Urine UA NEGATIVE (NEGATIVE); Color Urine UA YELLOW; Glucose Urine UA NEGATIVE (Negative); Ketones Urine UA NEGATIVE (NEGATIVE); Leukocyte Esterase Urine UA NEGATIVE (NEGATIVE); Nitrite Urine UA NEGATIVE (Negative); Occult Blood Urine UA NEGATIVE (Negative); Protein Urine UA NEGATIVE (Negative); Urobilinogen Urine UA 0.2 E.U./dL (0.2)
[2024-05-28 21:00] VITALS: PULSE 83; O2SAT 91
[2024-05-28 21:01] VITALS: BP 115/55; PULSE 86; RESP 20; O2SAT 91
[2024-05-28 21:11] LABS: Bacteria Urine None Seen; Culture Indicated Urine Cult Not Indicated; RBC Urine None Seen (0-5/HPF); Squamous Epithelial Cell Urine 0-1 /HPF (0-5/HPF); Urine Volume 10mL (spun); WBC Urine None Seen (0-5/HPF)
== END 2024-05-28 21:38 | disposition home or self-care (01) ==
PROVIDERS: Emergency Provider Student in an Organized Health Care Education/Training Program
DX: R56.9 Unspecified convulsions (principal)
CPT/HCPCS: 36415; 80053; 81001; 85025; 96374; 99283; 99284; J2405

== ENCOUNTER → 2024-05-30 06:16 | Outpatient (ROUT) | payer MEDICARE, MEDICAID, SELFPAY ==
[2024-05-30 09:09] LABS: HEMOLYSIS < 15 (0-50); Potassium 4.9 mmol/L (3.4-5.1)
== END ==
PROVIDERS: Visit Provider Registered Nurse
DX: R60.9 Edema, unspecified (principal)
CPT/HCPCS: 36415; 84132

== ENCOUNTER 2024-06-04 12:38 | Emergency (ER) | payer MEDICARE, MEDICAID, SELFPAY ==
[2024-06-04] VITALS (7 sets, daily range): BP systolic 151–184; BP diastolic 67–81; PULSE 67–96; RESP 19; TEMP 37.1; O2SAT 94–99
--- NOTE | 2024-06-04 12:45 | ED_ITS ---
HPI - Skin/Abscess/Foreign Bdy General Chief complaint: Extremity Injury, Lower Stated complaint: leg wounds Time Seen by Provider: 06/04/24 12:43 History of Present Illness HPI narrative: Patient brought in by ambulance from alf for complaints of left lateral lower leg skin wound. No known injury. Uncertain when this started. Patient seen here a week ago for unrelated reasons but no documentation of skin problem. Patient states she makes her own decisions. She is awake alert oriented x4 clear speech. She does have records papers from facility DNR DNI with comfort measures only. However she is amenable for blood work and antibiotics and images. However she wants me to call her [id number] Maame 1st. Patient in no distress. Related Data Previous Rx's Medication Instructions Recorded doxycycline monohydrate 100 mg 100 mg PO BID #20 caps 06/04/24 capsule Allergies Allergy/AdvReac Type Severity Reaction Status Date / Time No Known Drug Allergies Allergy Unverified 06/04/24 12:47 Review of Systems Review of Systems Narrative: GENERAL: Negative chills, fatigue, malaise, fever, sweats. HEENT: Negative sinus pain, ear pain, sore throat RESPIRATORY: Negative dyspnea, cough CARDIOVASCULAR: Negative chest pain, palpitations GASTROINTESTINAL: Negative vomiting, nausea, abdominal pain : Negative dysuria, frequency, hematuria MUSCULOSKELETAL: Negative muscle or bony pain SKIN: Negative rash, skin lesions, positive skin wound NEUROLOGIC: Negative weakness, numbness ROS Unobtainable: All systems reviewed & are unremarkable except as noted in HPI and below Patient History Social History Smoking Status: Never smoker Smoking Status: Never smoker Exam Narrative Exam Narrative: GENERAL: in no distress, not toxic not dyspneic HEAD: Normocephalic. EYES: Pupils equal round ENT: Mucous membranes moist. NECK: Trachea midline. CARDIOVASCULAR: Regular rate and rhythm RESPIRATORY: Clear to auscultation. Breath sounds equal bilaterally. No wheezes, rales, or rhonchi. GASTROINTESTINAL: Abdomen soft, reproducible epigastric tenderness no peritoneal signs no guarding no rebound no pain out of portion to exam EXTREMITIES: No gross deformities. Examination lower extremities knee to toes exposed. Calves are grossly symmetric. Lateral aspect distal 3rd of the left leg there are small skin ulcerations that are dry without oozing. Nontender. No crepitus no pain out of portion exam. Feet are warm and soft brisk cap refills strong pedal pulses. Negative Jorgensen test negative Homans test. No palpable cords on either calves. NEURO: AO x3. Clear speech SKIN: Warm and dry PSYCH: Not anxious, is cooperative Initial Vital Signs Initial Vital Signs: Vital Signs Pulse Rate 67 06/04/24 12:41 Blood Pressure 152/72 H 06/04/24 12:41 Pulse Oximetry 99 06/04/24 12:41 Course Orders Ordered: Discontinued Medications Al Hydrox/Mg Hydrox/Simethicone 20 ml/ Lidocaine HCl 15 ml 0 ml PO NOW ONE Stop: 06/04/24 13:19 Last Admin: 06/04/24 13:35 Dose: 20 ml Documented By: Doxycycline Hyclate 100 mg/ (Sodium Chloride) 100 mls @ 100 mls/hr IV NOW ONE Stop: 06/04/24 13:23 Last Infusion: 06/04/24 14:53 Dose: Infused Documented By: Admin: 06/04/24 13:36 Dose: 100 mls/hr Documented By: Ondansetron HCl (Ondansetron 4 Mg/2 Ml Inj) 4 mg IV NOW ONE Stop: 06/04/24 13:22 Last Admin: 06/04/24 13:35 Dose: 4 mg Documented By: Pantoprazole Sodium (Pantoprazole 40 Mg Vial) 40 mg IV NOW ONE Stop: 06/04/24 13:19 Last Admin: 06/04/24 13:35 Dose: 40 mg Documented By: Vital Signs Vital signs: Vital Signs - 8 hr 06/04/24 12:43 Temperature 98.7 F Pulse Rate 90 Respiratory Rate 19 Blood Pressure 152/72 H Pulse Oximetry 94 Oxygen Delivery Method Room Air MDM - Skin/Abscess/Foreign Bdy Lab Data 06/04/24 13:00 06/04/24 13:00 Labs: Lab Results 06/04/24 Range/Units 13:00 WBC 9.8 (4.5-11.0) X10^3/uL RBC 4.30 (4.0-5.2) X10^6/uL Hgb 9.7 L (12.0-16.0) g/dL Hct 30.8 L (36-46) % MCV 71.7 L (80-100) fL MCH 22.5 L (26-34) PG MCHC 31.4 (30-36) % RDW 16.9 H (11.6-14.8) % Plt Count 280 (150-400) X10^3/uL Neut % (Auto) 74.1 (50-75) % Lymph % (Auto) 18.0 L (25-40) % [place] % (Auto) 5.7 (3-14) % Eos % (Auto) 1.5 L (2-4) % Baso % (Auto) 0.7 (0-2) % Neut # (Auto) 7300 H (8478-3186) /uL Lymph # (Auto) 1800 (9034-7043) /uL [place] # (Auto) 600 (0-900) /uL Eos # (Auto) 100 (0-450) /uL Baso # (Auto) 100 (0-100) /uL Sodium 137 (137-145) mmol/L Potassium 4.5 (3.4-5.1) mmol/L Chloride 100 (98-107) mmol/L Carbon Dioxide 26 (22-32) mmol/L BUN 16 (7-17) mg/dL Creatinine 0.79 (0.52-1.04) mg/dL Estimated GFR > 60 (>60) mL/min BUN/Creatinine Ratio 20.3 (6-22) Glucose 133 H (80-110) mg/dL Calcium 9.2 (8.4-10.2) mg/dL Total Bilirubin 0.6 (0.2-1.3) mg/dL AST 45 H (14-36) IU/L ALT 19 (<35) IU/L Alkaline Phosphatase 123 (38-126) U/L Total Protein 8.2 (6.3-8.2) g/dL Albumin 4.6 (3.5-5.0) g/dL Globulin 3.6 (1.7-4.1) g/dL Albumin/Globulin Ratio 1.3 (1.0-2.8) Imaging Data Extremity x-ray #1: Radiologist's Impression: [address] [address] XRay Report Signed Patient: Monae Montano MR#: [id number] : 1945 Acct:[id number] Age/Sex: 79 / F Date of Service: 06/04/24 Loc: ED Accession Number: [id number] Procedure: XR tibia fibula LT 2V Ordering Provider: Adi Holbrook MD PROCEDURE: XR TIBIA FIBULA LT 2V INDICATIONS: Pain/swelling TECHNIQUE: 2 views of the tibia and fibula were acquired. COMPARISON: None. FINDINGS: Bones: No fractures or dislocations. No suspicious bony lesions. Soft tissues: No suspicious soft tissue calcifications or masses. IMPRESSION: No acute osseous abnormality. If pain persists with conservative management, consider repeat x-ray in 10-14 days or cross-sectional imaging. Dictated by: Agustin Carbajal M.D. on 06/04/2024 at 14:30 Approved by: Agustin Carbajal M.D. on 06/04/2024 at 14:31 [facility] Narrative Medical decision making narrative: Patient brought in by ambulance from alf for complaints of left lateral lower leg skin wound. No known injury. Uncertain when this started. Patient seen here a week ago for unrelated reasons but no documentation of skin problem. Patient states she makes her own decisions. She is awake alert oriented x4 clear speech. She does have records papers from facility DNR DNI with comfort measures only. However she is amenable for blood work and antibiotics and images. However she wants me to call her [id number] Maame 1st. Patient in no distress. After history and exam, CBC CMP x-ray tib-fib [facility] Medical records reviewed: No recent visit for this complaint Differential considered: Includes but not limited to cellulitis abscess necrotizing fasciitis Lab Test results independently reviewed as above. Pertinent findings: WBC 9.8 hemoglobin 9.7 sodium 137 potassium 4.5 BUN 16 creatinine 0.79 EKG normal sinus rhythm normal EKG rate 88 Imaging studies independently reviewed: X-ray left tib-fib no acute finding Consultations: None indicated at this time Treatments: Doxycycline Zofran Protonix Maalox Re-evaluations: 1:21 p.m.. Spoke with patient, her wliyp-hm-evkxknae maame, did not call back. She would like now blood work Zofran GI cocktail Protonix x- ray of the leg. She says those tests are okay with her. Denies any chest pain. She states she is just anxious now and causing her stomach to be upset. She does have reproducible epigastric tenderness as well as right upper quadrant tenderness 2:30 p.m.. I did speak with qsyrr-pl-vxbcenlz, Maame, reviewed with her the DNR DNI with comfort measures only however she will make corrections to the comfort measures only. She states it should be selective treatments. Agrees with blood work and x-ray. 3:14 p.m.. Patient feeling better. Abdomen is nontender. Medications here helped her. Return precautions reviewed. Treating her for cellulitis I reviewed with her. She agrees. She desires discharge home. Discussion: Appropriate for discharge home. Exam is reassuring. Patient will be treated for cellulitis. Antibiotics have been started. Yihwa-jd-gltecacp was contacted. Return precautions reviewed and she desires discharge home. Laboratory studies are reassuring. No fever. No signs of necrotizing fasciitis. No drainable fluid. Diagnosis: Left leg cellulitis Discharge Plan Departure Patient Disposition: Home Clinical Impression: Cellulitis Qualifiers: Site of cellulitis: extremity Site of cellulitis of extremity: lower extremity Laterality: left Qualified Code(s): L03.116 - Cellulitis of left lower limb Instructions: DI for Cellulitis -- Adult Activity Restrictions/Additional Instructions: You are being treated for skin infection called cellulitis. Antibiotics were started today. Laboratory studies and x-ray imaging are reassuring. Prescription has been provided for you as well. See family doctor this week for re-evaluation of your skin infection. Keep leg elevated when at rest. Do not use compression stockings until infection has resolved. Return if worse if any questions or concerns. You may shower. Prescriptions: New doxycycline monohydrate 100 mg capsule 100 mg PO BID Qty: 20 0RF Stand Alone Forms: Patient Portal/API/Survey
--- NOTE | 2024-06-04 13:04 | PC.NURSE ---
Pt sitting back in [facility]. Appears in NAD. Multiple wounds to left calf. Open and draining.
--- NOTE | 2024-06-04 13:15 | PC.NURSE ---
Pt c/o gastric pain. Dr Holbrook notified.
--- NOTE | 2024-06-04 13:20 | DI.RAD.S_ITS ---
PROCEDURE: XR TIBIA FIBULA LT 2V INDICATIONS: Pain/swelling TECHNIQUE: 2 views of the tibia and fibula were acquired. COMPARISON: None. FINDINGS: Bones: No fractures or dislocations. No suspicious bony lesions. Soft tissues: No suspicious soft tissue calcifications or masses. IMPRESSION: No acute osseous abnormality. If pain persists with conservative management, consider repeat x-ray in 10-14 days or cross-sectional imaging. Dictated by: Agustin Carbajal M.D. on 06/04/2024 at 14:30 Approved by: Agustin Carbajal M.D. on 06/04/2024 at 14:31
[2024-06-04 13:26] LABS: Add Manual Diff / Slide Review NO; Basophils Absolute Auto 100 /uL (0-100); Basophils Percent Auto 0.7 % (0-2); Eosinophils Absolute Auto 100 /uL (0-450); Eosinophils Percent Auto 1.5 % (2-4); Hematocrit 30.8 % (36-46); Hemoglobin 9.7 g/dL (12.0-16.0); Lymphocytes Absolute Auto 1800 /uL (1100-4500); Mean Corpuscular HGB Conc 31.4 % (30-36); Mean Corpuscular Hemoglobin 22.5 PG (26-34); Mean Corpuscular Volume 71.7 fL (80-100); Monocytes Absolute Auto 600 /uL (0-900); Monocytes Percent Auto 5.7 % (3-14); Neutrophils Absolute Auto 7300 /uL (1500-7000); Neutrophils Percent Auto 74.1 % (50-75); Platelet Count 280 X10^3/uL (150-400); Red Cell Distribution Width 16.9 % (11.6-14.8); White Blood Cell Count 9.8 X10^3/uL (4.5-11.0)
--- NOTE | 2024-06-04 13:28 | EKG_ITS ---
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
[2024-06-04 13:30] LABS: Alanine Aminotransferase 19 IU/L (<35); Albumin 4.6 g/dL (3.5-5.0); Albumin Globulin Ratio 1.3 (1.0-2.8); Alkaline Phosphatase 123 U/L (38-126); Aspartate Aminotransferase 45 IU/L (14-36); BUN Creatinine Ratio 20.3 (6-22); Bilirubin Total 0.6 mg/dL (0.2-1.3); Blood Urea Nitrogen 16 mg/dL (7-17); Calcium 9.2 mg/dL (8.4-10.2); Carbon Dioxide 26 mmol/L (22-32); Chloride 100 mmol/L (98-107); Estimated Glomerular Filt Rate > 60 mL/min (>60); Globulin 3.6 g/dL (1.7-4.1); Glucose 133 mg/dL (80-110); HEMOLYSIS 90 (0-50); Potassium 4.5 mmol/L (3.4-5.1); Sodium 137 mmol/L (137-145); Total Protein 8.2 g/dL (6.3-8.2)
[2024-06-04] MEDS: ONDANSETRON 4 MG/2 ML INJ IV (13:35)
[2024-06-04] MEDS: MAG HYDROX/ALUMINUM/SIMETH SUS 20 ML, LIDOCAINE VISCOUS 2% 15 ML PO (13:35)
[2024-06-04] MEDS: PANTOPRAZOLE 40 MG VIAL IV (13:35)
[2024-06-04] MEDS: DOXYCYCLINE 100 MG in SODIUM CHLORIDE 0.9% 100 ML IV (13:36)
--- NOTE | 2024-06-04 15:25 | PC.NURSE ---
Report was called to [facility] by this EDRN at this time. They will come get the patient shortly to return home.
== END 2024-06-04 15:38 | disposition home or self-care (01) ==
PROVIDERS: Emergency Provider Emergency Medicine
DX: L03.116 Cellulitis of left lower limb (principal); R10.13 Epigastric pain; R10.11 Right upper quadrant pain; F41.9 Anxiety disorder, unspecified; Z66 Do not resuscitate
CPT/HCPCS: 36415; 73590; 80053; 85025; 93005; 96365; 96375; 99284; J2405; J2470

== ENCOUNTER → 2024-06-13 06:20 | Outpatient (ROUT) | payer MEDICARE, MEDICAID, SELFPAY ==
[2024-06-13 08:06] LABS: HEMOLYSIS < 15 (0-50); Magnesium 1.5 mg/dL (1.6-2.3); Potassium 4.3 mmol/L (3.4-5.1)
== END ==
PROVIDERS: Visit Provider Registered Nurse
DX: R60.9 Edema, unspecified (principal)
CPT/HCPCS: 36415; 83735; 84132

== ENCOUNTER 2024-06-26 11:33 | Emergency (ER) | payer MEDICARE, MEDICAID, SELFPAY ==
[2024-06-26 11:36] VITALS: PULSE 83; RESP 16; TEMP 36.9; O2SAT 96; BMI 32.8
--- NOTE | 2024-06-26 11:40 | EKG_ITS ---
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
[2024-06-26 12:26] LABS: Add Manual Diff / Slide Review NO; Basophils Absolute Auto 100 /uL (0-100); Basophils Percent Auto 1.1 % (0-2); Eosinophils Absolute Auto 100 /uL (0-450); Hematocrit 31.5 % (36-46); Hemoglobin 9.8 g/dL (12.0-16.0); Lymphocytes Absolute Auto 2600 /uL (1100-4500); Lymphocytes Percent Auto 22.8 % (25-40); Mean Corpuscular HGB Conc 31.1 % (30-36); Mean Corpuscular Hemoglobin 22.1 PG (26-34); Monocytes Absolute Auto 900 /uL (0-900); Monocytes Percent Auto 7.6 % (3-14); Neutrophils Absolute Auto 7800 /uL (1500-7000); Neutrophils Percent Auto 67.5 % (50-75); Platelet Count 267 X10^3/uL (150-400); Red Blood Cell Count 4.43 X10^6/uL (4.0-5.2); Red Cell Distribution Width 17.3 % (11.6-14.8); White Blood Cell Count 11.5 X10^3/uL (4.5-11.0)
--- NOTE | 2024-06-26 12:37 | PC.NURSE ---
Pt lying back in gurney. Appears in NAD. Denies feeling nauseated. C/o pain to LLE where there is a dressing. Pt doesn't know why there is a dressing there.
[2024-06-26 12:42] LABS: Alanine Aminotransferase 21 IU/L (<35); Albumin 4.6 g/dL (3.5-5.0); Albumin Globulin Ratio 1.3 (1.0-2.8); Alkaline Phosphatase 122 U/L (38-126); Aspartate Aminotransferase 39 IU/L (14-36); BUN Creatinine Ratio 23.7 (6-22); Bilirubin Total 0.8 mg/dL (0.2-1.3); Blood Urea Nitrogen 23 mg/dL (7-17); Calcium 9.7 mg/dL (8.4-10.2); Carbon Dioxide 22 mmol/L (22-32); Chloride 98 mmol/L (98-107); Estimated Glomerular Filt Rate 59 mL/min (>60); Globulin 3.6 g/dL (1.7-4.1); Glucose 115 mg/dL (80-110); Lipase 56 U/L (23-300); Potassium 4.3 mmol/L (3.4-5.1); Sodium 134 mmol/L (137-145); Total Protein 8.2 g/dL (6.3-8.2)
[2024-06-26 12:43] LABS: HEMOLYSIS 91 (0-50)
--- NOTE | 2024-06-26 12:54 | ED_ITS ---
HPI - Nausea/Vomiting/Diarrhea General Chief complaint: Nausea/Vomiting/Diarrhea Stated complaint: NVD/Hypokalemia Time Seen by Provider: 06/26/24 12:53 History of Present Illness HPI Narrative: 79-year-old female history of hypokalemia presents for the assisted living facility with nausea vomiting yesterday nonbilious nonbloody along with diarrhea for further evaluation at this time. Other than what is stated 14 point review of system is negative Related Data Previous Rx's Medication Instructions Recorded doxycycline monohydrate 100 mg 100 mg PO BID #20 caps 06/04/24 capsule ondansetron HCl 4 mg tablet 4 mg PO Q8H PRN nausea and 06/26/24 vomiting #30 tabs Allergies Allergy/AdvReac Type Severity Reaction Status Date / Time No Known Drug Allergies Allergy Unverified 06/04/24 12:47 Review of Systems Review of Systems ROS Unobtainable: All systems reviewed & are unremarkable except as noted in HPI and below Patient History Social History Smoking Status: Never smoker Smoking Status: Never smoker Exam Narrative Exam Narrative: GENERAL: [79] year old patient appears stated age. Well-developed patient, in mild distress. HEAD: Atraumatic. Normocephalic. EYES: Pupils equal round and reactive. Extraocular motions intact. No scleral icterus. No injection or drainage. ENT: Nose without bleeding, purulent drainage. Throat without erythema, tonsillar hypertrophy or exudate. Airway patent. NECK: Trachea midline. Non tender CARDIOVASCULAR: Regular rate and rhythm without murmurs, gallops, or rubs. RESPIRATORY: Clear to auscultation. Breath sounds equal bilaterally. No wheezes, rales, or rhonchi. GASTROINTESTINAL: Abdomen soft, non-tender, nondistended. EXTREMITIES: No edema or joint tenderness. BACK: Nontender without deformity or crepitance. No flank tenderness. NEURO: AOx3. SKIN: No rash or erythema of visible areas Initial Vital Signs Initial Vital Signs: Vital Signs Temperature 98.5 F 06/26/24 11:36 Pulse Rate 83 06/26/24 11:36 Respiratory Rate 16 06/26/24 11:36 Pulse Oximetry 96 06/26/24 11:36 Oxygen Delivery Method Room Air 06/26/24 11:36 Course Orders Ordered: ED Orders 06/26/24 11:40 EKG-12 Lead Stat 06/26/24 12:00 Complete Blood Count AUTO DIFF Stat Comprehensive Metabolic Panel Stat Lipase Stat 06/26/24 13:01 XR acute abdomen series Stat Discontinued Medications Hydroxyzine HCl (Hydroxyzine Hcl 25 Mg Tablet) 25 mg PO NOW ONE Stop: 06/26/24 15:05 Last Admin: 06/26/24 15:12 Dose: 25 mg Documented By: GONZALO Sodium Chloride (Normal Saline 0.9%) 1,000 mls @ 1,000 mls/hr IV BOLUS ONE Stop: 06/26/24 14:00 Last Infusion: 06/26/24 14:22 Dose: Infused Documented By: Admin: 06/26/24 13:30 Dose: 1,000 mls/hr Documented By: CANELO Ondansetron HCl (Ondansetron 4 Mg/2 Ml Inj) 4 mg IV NOW PRN PRN Reason: Nausea And Vomiting Ondansetron HCl (Ondansetron 4 Mg Odt) 4 mg PO NOW PRN PRN Reason: Nausea And Vomiting Vital Signs Vital signs: Vital Signs - 8 hr 06/26/24 11:36 06/26/24 13:00 06/26/24 13:00 Temperature 98.5 F Pulse Rate 83 82 Respiratory Rate 16 Blood Pressure 104/53 L Pulse Oximetry 96 95 Oxygen Delivery Method Room Air 06/26/24 13:45 06/26/24 14:10 06/26/24 14:11 Temperature Pulse Rate Respiratory Rate 18 Blood Pressure 142/53 H Pulse Oximetry 95 Oxygen Delivery Method 06/26/24 14:11 06/26/24 15:00 06/26/24 15:00 Temperature Pulse Rate 88 82 Respiratory Rate 16 Blood Pressure 118/56 L Pulse Oximetry 95 95 Oxygen Delivery Method Room Air Room Air MDM - Nausea/Vomiting/Diarrhea Lab Data 06/26/24 12:00 06/26/24 12:00 Labs: Lab Results 06/26/24 Range/Units 12:00 WBC 11.5 H (4.5-11.0) X10^3/uL RBC 4.43 (4.0-5.2) X10^6/uL Hgb 9.8 L (12.0-16.0) g/dL Hct 31.5 L (36-46) % MCV 71.0 L (80-100) fL MCH 22.1 L (26-34) PG MCHC 31.1 (30-36) % RDW 17.3 H (11.6-14.8) % Plt Count 267 (150-400) X10^3/uL Neut % (Auto) 67.5 (50-75) % Lymph % (Auto) 22.8 L (25-40) % [place] % (Auto) 7.6 (3-14) % Eos % (Auto) 1.0 L (2-4) % Baso % (Auto) 1.1 (0-2) % Neut # (Auto) 7800 H (5029-4409) /uL Lymph # (Auto) 2600 (8951-3014) /uL [place] # (Auto) 900 (0-900) /uL Eos # (Auto) 100 (0-450) /uL Baso # (Auto) 100 (0-100) /uL Sodium 134 L (137-145) mmol/L Potassium 4.3 (3.4-5.1) mmol/L Chloride 98 (98-107) mmol/L Carbon Dioxide 22 (22-32) mmol/L BUN 23 H (7-17) mg/dL Creatinine 0.97 (0.52-1.04) mg/dL Estimated GFR 59 L (>60) mL/min BUN/Creatinine Ratio 23.7 H (6-22) Glucose 115 H (80-110) mg/dL Calcium 9.7 (8.4-10.2) mg/dL Total Bilirubin 0.8 (0.2-1.3) mg/dL AST 39 H (14-36) IU/L ALT 21 (<35) IU/L Alkaline Phosphatase 122 (38-126) U/L Total Protein 8.2 (6.3-8.2) g/dL Albumin 4.6 (3.5-5.0) g/dL Globulin 3.6 (1.7-4.1) g/dL Albumin/Globulin Ratio 1.3 (1.0-2.8) Lipase 56 (23-300) U/L Point of Care Testing Glucose POC 109 Urine Dip Bedside Urine Glucose Negative Bedside Urine Bilirubin - Negative Bedside Urine Ketone - Negative Urine Specific [place] 1.010 Bedside Urine Occult Blood - Negative Bedside Urine pH 6.0 Bedside Urine Protein - Negative Bedside Urine Urobilinogen - Negative Bedside Urine Nitrite - Negative Bedside Urine Leukocytes - Negative Esterase Imaging Data Abdominal x-ray: Radiologist's Impression: [address] [address] XRay Report Signed Patient: Monae Montano MR#: [id number] : 1945 Acct:[id number] Age/Sex: 79 / F Date of Service: 06/26/24 Loc: ED Accession Number: [id number] Procedure: XR acute abdomen series Ordering Provider: Nakul Castaneda D.O. PROCEDURE: XR ACUTE ABDOMEN SERIES INDICATIONS: abd pain /n/v TECHNIQUE: One view chest and two views of the abdomen were acquired. COMPARISON: [facility], CR, XR CHEST 1V, 05/26/2024, 14:27. FINDINGS: Surgical changes and devices: None. Chest: Increased pulmonary markings. Low lung volumes. Abdomen: Bowel gas pattern is normal. No suspicious calcifications. Visualized solid organ contours appear normal. Bones: No suspicious bony lesions. IMPRESSION: Increased pulmonary markings with low lung volumes. Findings may indicate pulmonary edema or interstitial lung disease. MDM Narrative Medical decision making narrative: All labwork, imaging, ekg, RN note, triage note, medication list, old records from previous visits, vital signs all reviewed. Pt given NS 1L bolus and hydroxzine here. Differential dx dehydration, electrolyte derangement, uti, pneumonia, stemi, nstemi. D/C home on zofran rx. Discharge Plan Departure Patient Disposition: Home Clinical Impression: Vomiting and diarrhea Instructions: DI for Vomiting -- Adult Activity Restrictions/Additional Instructions: Return with new or worsening symptoms take your medicines as prescribed and keep hydrated Prescriptions: New ondansetron HCl 4 mg tablet 4 mg PO Q8H PRN (Reason: nausea and vomiting) Qty: 30 0RF No Action doxycycline monohydrate 100 mg capsule 100 mg PO BID Qty: 20 0RF Stand Alone Forms: Patient Portal/API/Survey
[2024-06-26 13:00] VITALS: BP 104/53; PULSE 82; O2SAT 95
--- NOTE | 2024-06-26 13:01 | DI.RAD.S_ITS ---
PROCEDURE: XR ACUTE ABDOMEN SERIES INDICATIONS: abd pain /n/v TECHNIQUE: One view chest and two views of the abdomen were acquired. COMPARISON: [facility], CR, XR CHEST 1V, 05/26/2024, 14:27. FINDINGS: Surgical changes and devices: None. Chest: Increased pulmonary markings. Low lung volumes. Abdomen: Bowel gas pattern is normal. No suspicious calcifications. Visualized solid organ contours appear normal. Bones: No suspicious bony lesions. IMPRESSION: Increased pulmonary markings with low lung volumes. Findings may indicate pulmonary edema or interstitial lung disease. Dictated by: Josr Lancaster M.D. on 06/26/2024 at 13:30 Approved by: Josr Lancaster M.D. on 06/26/2024 at 13:32
[2024-06-26] MEDS: SODIUM CHLORIDE 0.9% 1,000 ML 1000 ML IV (13:30)
[2024-06-26 13:45] VITALS: RESP 18
[2024-06-26 14:10] VITALS: O2SAT 95
[2024-06-26 14:11] VITALS: BP 142/53; PULSE 88; O2SAT 95
[2024-06-26 15:00] VITALS: BP 118/56; PULSE 82; RESP 16; O2SAT 95
[2024-06-26] MEDS: hydrOXYzine HCL 25 MG TABLET PO (15:12)
--- NOTE | 2024-06-26 17:50 | PC.NURSE ---
transport with [facility] assisted living set up for a pickup time of 1720, at 1734 no one had arrived so I called and spoke with the monument setter who stated someone is on their way. at 1745 I called back because still no transport had arrived, after two rings I was sent to voicemail, I had then called back three times after each time getting sent to voicemail. Charge nurse made aware who continued to assist in calling and got dulce of monument setter again at 1751 who was told We are on our way.
== END 2024-06-26 17:55 | disposition home or self-care (01) ==
PROVIDERS: Emergency Provider Family Medicine
DX: R11.2 Nausea with vomiting, unspecified (principal); R19.7 Diarrhea, unspecified; R10.9 Unspecified abdominal pain
CPT/HCPCS: 36415; 74022; 80053; 81003; 82962; 83690; 85025; 93005; 93010; 96360; 99284; A9270

== ENCOUNTER → 2024-06-27 06:13 | Outpatient (ROUT) | payer MEDICARE, MEDICAID, SELFPAY ==
[2024-06-27 08:21] LABS: HEMOLYSIS < 15 (0-50); Magnesium 1.9 mg/dL (1.6-2.3); Potassium 3.8 mmol/L (3.4-5.1)
== END ==
LOC: LAB 06:13
PROVIDERS: Visit Provider Registered Nurse
DX: R60.9 Edema, unspecified (principal); E83.42 Hypomagnesemia
CPT/HCPCS: 36415; 83735; 84132

== ENCOUNTER → 2024-07-18 06:18 | Outpatient (ROUT) | payer MEDICARE, MEDICAID, SELFPAY ==
[2024-07-18 08:39] LABS: BUN Creatinine Ratio 17.3 (6-22); Blood Urea Nitrogen 13 mg/dL (7-17); Calcium 9.9 mg/dL (8.4-10.2); Carbon Dioxide 29 mmol/L (22-32); Chloride 103 mmol/L (98-107); Estimated Glomerular Filt Rate > 60 mL/min (>60); Glucose 110 mg/dL (80-110); HEMOLYSIS < 15 (0-50); Magnesium 1.9 mg/dL (1.6-2.3); Potassium 4.7 mmol/L (3.4-5.1); Sodium 139 mmol/L (137-145)
== END ==
PROVIDERS: Visit Provider Registered Nurse
DX: R60.9 Edema, unspecified (principal)
CPT/HCPCS: 36415; 80048; 83735

== ENCOUNTER → 2024-08-01 06:28 | Outpatient (ROUT) | payer MEDICARE, MEDICAID, SELFPAY ==
[2024-08-01 08:34] LABS: HEMOLYSIS < 15 (0-50); Magnesium 2.1 mg/dL (1.6-2.3); Potassium 3.7 mmol/L (3.4-5.1)
== END ==
PROVIDERS: Visit Provider Registered Nurse
DX: E87.6 Hypokalemia (principal)
CPT/HCPCS: 36415; 83735; 84132

== ENCOUNTER 2024-08-22 11:50 | Emergency (ER) | payer MEDICARE, MEDICAID, SELFPAY ==
[2024-08-22 11:54] VITALS: BP 140/63; PULSE 83; RESP 16; TEMP 36.6; O2SAT 97; BMI 37.3
--- NOTE | 2024-08-22 12:22 | ED_ITS ---
<Statement entered by Nakul Castaneda, DO - 08/22/24 18:52> Dr. Castaneda co sign statement I was available for consultation during this patient's emergency department visit. This chart is signed by myself for administrative purposes only. I did not have direct contact with the patient during this visit. They were seen independently by the APC HPI - Wound/Laceration General Chief Complaint: Wound/Laceration Stated Complaint: Has infection on Left leg Time Seen by Provider: 08/22/24 12:22 Source: patient and family Mode of arrival: Wheelchair History of Present Illness HPI narrative: Ms. Montano is a very pleasant 79-year-old female with a past medical history of dementia, DNR/DNI, chronic left lower extremity leg wound following with Wound Care who presents to the emergency department with her POA from [facility] for concern of left lower extremity wound infection. Patient has wound care 1 to 2 times a week at her assisted living facility for chronic nonhealing left lower leg wounds however today nursing staff noticed that the leg became red and hot and were concerned that she might need antibiotics. Patient and POA report that she has a hard time keeping wound dressings on and often picks them off what she is concerned is contributing. She denies fevers, chills, chest pain, shortness of breath, nausea, vomiting, diarrhea, constipation. She does note some clear drainage from her left leg. Related Data Previous Rx's Medication Instructions Recorded doxycycline monohydrate 100 mg 100 mg PO BID #20 caps 06/04/24 capsule ondansetron HCl 4 mg tablet 4 mg PO Q8H PRN nausea and 06/26/24 vomiting #30 tabs cephalexin 500 mg capsule 500 mg PO QID 7 days #28 caps 08/22/24 Allergies Allergy/AdvReac Type Severity Reaction Status Date / Time No Known Drug Allergies Allergy Unverified 06/04/24 12:47 Review of Systems Review of Systems ROS Unobtainable: All systems reviewed & are unremarkable except as noted in HPI and below Exam Narrative Exam Narrative: GENERAL: 79 year old patient appears stated age. Well-developed patient, in no acute distress. HEAD: Atraumatic. Normocephalic. NECK: Trachea midline. Cervical ROM intact. CARDIOVASCULAR: Regular rate and rhythm. RESPIRATORY: ?Nonlabored respirations. ?Speaking in clear, full sentences. EXTREMITIES: Bilateral lower extremity edema. Left lower extremity with erythema and increased warmth on the lateral aspect, numerous small areas of scabs/picking open wounds with serosanguineous drainage, no abscess, large open wound or purulent drainage. DP pulses palpable bilaterally. NEURO: Alert, oriented to self, is able to answer her own questions, POA does supplement history. Moves all extremities appropriately, ambulates independently. SKIN: Cellulitis of left lower extremity described above. Initial Vital Signs Initial Vital Signs: Vital Signs Temperature 97.8 F 08/22/24 11:54 Pulse Rate 83 08/22/24 11:54 Respiratory Rate 16 08/22/24 11:54 Blood Pressure 140/63 08/22/24 11:54 Pulse Oximetry 97 08/22/24 11:54 Oxygen Delivery Method Room Air 08/22/24 11:54 Course Orders Ordered: Discontinued Medications Cephalexin HCl (Cephalexin 250 Mg Capsule) 500 mg PO NOW ONE Stop: 08/22/24 12:34 Last Admin: 08/22/24 12:37 Dose: 500 mg Vital Signs Vital signs: Vital Signs - 8 hr 08/22/24 11:54 Temperature 97.8 F Pulse Rate 83 Respiratory Rate 16 Blood Pressure 140/63 Pulse Oximetry 97 Oxygen Delivery Method Room Air MDM - Wound/Laceration Medical Records Attestation: I reviewed the patient's medical records. MDM Narrative Medical decision making narrative: 79-year-old female with a past medical history of dementia, DNR/DNI, chronic left lower extremity leg wound following with Wound Care who presents to the emergency department with her POA from [facility] for concern of left lower extremity wound infection. Differential diagnosis includes but is not limited to chronic nonhealing wound, edema, infection, cellulitis, etc. On exam patient is in no acute distress, nontoxic-appearing, all vital signs within normal limits. She does have dementia but is able to answer questions, her POA is here and contributes to the history. Wound care has been managing a left lower extremity wound however patient struggles with picking scratching at her dressings and wounds, today it became red with increased warmth. Dressings removed, physical exam consistent with cellulitis as left lower extremity lateral side has erythema, numerous small scabs from patient picking at the skin, there is no streaking erythema up the leg, there is clear serosanguineous drainage from her underlying edema, no large or purulent wound. She is neurovascularly intact. We will treat with cephalexin 500 mg 4 times a day x7 days, also discussed the importance of avoiding picking/scratching of the wound and keeping it clean and covered. Patient verbalized understanding of information in his eagerly requesting discharge home. New LLE dressing applied by nursing staff. Discussed strict ED return precautions, follow up PCP, proper wound care. Patient verbalized understanding of all information agreeable to plan. She is stable for discharge home, 1st dose of antibiotics given in the ED, remainder sent to her [facility] in [place]. Discharge Plan Departure Patient Disposition: Home Clinical Impression: Cellulitis of left lower extremity Instructions: DI for Cellulitis -- Adult Activity Restrictions/Additional Instructions: Dear Ms. Montano, Today you were evaluated of redness and increased warmth of your left lower extremity. Your physical exam is consistent with cellulitis which is a skin and soft tissue infection. Please complete the full 7 day course of oral antibi otics. It is very important to keep the left lower leg clean, covered with gauze or wound dressing at all time. Avoid picking or scratching of the wound as this can spread and worsening infection. Elevating the leg can help with swelling. Please follow up with your primary care doctor or return to the emergency department if develop any new or worsening symptoms such as fevers, chills, flu-like symptoms etc. Please follow up with your primary care doctor within the next 2-3 days for ER follow-up. (If you do not have a PCP you can call [phone]. ?to schedule an appointment with an [facility] Primary Care Provider) IF YOU DEVELOP ANY NEW OR WORSENING SYMPTOMS, RETURN TO THE ER! Please read the attached instructions, they highlight more specific treatments and interventions for you at home. Thank you for letting me participate in your care, Citlalli Gray PA-C Prescriptions: New cephalexin 500 mg capsule 500 mg PO QID 7 Days Qty: 28 0RF No Action ondansetron HCl 4 mg tablet 4 mg PO Q8H PRN (Reason: nausea and vomiting) Qty: 30 0RF doxycycline monohydrate 100 mg capsule 100 mg PO BID Qty: 20 0RF Stand Alone Forms: Patient Portal/API/Survey
[2024-08-22] MEDS: cephALEXin 250 MG CAPSULE 500 MG PO (12:37)
--- NOTE | 2024-08-22 12:49 | PC.NURSE ---
dressing applied by acute care RN. She placed non stick dressing with coban over that.
== END 2024-08-22 12:45 | disposition home or self-care (01) ==
PROVIDERS: Emergency Provider Physician Assistant
DX: L03.116 Cellulitis of left lower limb (principal)
CPT/HCPCS: 99283

== ENCOUNTER → 2024-08-29 05:54 | Outpatient (ROUT) | payer MEDICARE, MEDICAID, SELFPAY ==
[2024-08-29 07:26] LABS: HEMOLYSIS < 15 (0-50); Magnesium 1.9 mg/dL (1.6-2.3); Potassium 3.7 mmol/L (3.4-5.1)
== END ==
PROVIDERS: Visit Provider Registered Nurse
DX: R60.9 Edema, unspecified (principal)
CPT/HCPCS: 36415; 83735; 84132

== ENCOUNTER → 2024-09-12 06:03 | Outpatient (ROUT) | payer MEDICARE, MEDICAID, SELFPAY ==
[2024-09-12 08:15] LABS: BUN Creatinine Ratio 27.7 (6-22); Blood Urea Nitrogen 26 mg/dL (7-17); Calcium 9.2 mg/dL (8.4-10.2); Carbon Dioxide 27 mmol/L (22-32); Chloride 96 mmol/L (98-107); Estimated Glomerular Filt Rate > 60 mL/min (>60); Glucose 99 mg/dL (70-99); Magnesium 1.9 mg/dL (1.6-2.3); Sodium 134 mmol/L (137-145)
[2024-09-12 08:16] LABS: HEMOLYSIS 68 (0-50)
== END ==
LOC: LAB 06:03
PROVIDERS: Visit Provider Registered Nurse
DX: R60.9 Edema, unspecified (principal); E87.6 Hypokalemia; E83.42 Hypomagnesemia
CPT/HCPCS: 36415; 80048; 83735

== ENCOUNTER 2024-10-23 11:07 | Emergency (ER) | payer MEDICARE, MEDICAID, SELFPAY ==
[2024-10-23 11:11] VITALS: BP 135/63; PULSE 88; RESP 20; TEMP 36.6; O2SAT 98
[2024-10-23 11:30] VITALS: PULSE 85; O2SAT 95
[2024-10-23 11:32] VITALS: BP 121/58; PULSE 82; O2SAT 95
[2024-10-23 12:25] LABS: Culture Indicated Urine Specimen Cultured
[2024-10-23 13:05] LABS: Add Manual Diff / Slide Review NO; Hematocrit 28.1 % (36-46); Hemoglobin 8.6 g/dL (12.0-16.0); Lymphocytes Absolute Auto 2100 /uL (1100-4500); Mean Corpuscular HGB Conc 30.5 % (30-36); Mean Corpuscular Hemoglobin 19.5 PG (26-34); Mean Corpuscular Volume 64.0 fL (80-100); Platelet Count 221 X10^3/uL (150-400)
[2024-10-23 13:16] LABS: Alanine Aminotransferase 10 IU/L (<35); Albumin 4.7 g/dL (3.5-5.0); Albumin Globulin Ratio 1.2 (1.0-2.8); Alkaline Phosphatase 155 U/L (38-126); Blood Urea Nitrogen 21 mg/dL (7-17); Calcium 9.2 mg/dL (8.4-10.2); Carbon Dioxide 29 mmol/L (22-32); Chloride 101 mmol/L (98-107); Estimated Glomerular Filt Rate > 60 mL/min (>60); Globulin 3.8 g/dL (1.7-4.1); Glucose 103 mg/dL (70-99); Potassium 4.5 mmol/L (3.4-5.1); Sodium 141 mmol/L (137-145); Total Protein 8.5 g/dL (6.3-8.2)
[2024-10-23 13:18] LABS: HEMOLYSIS 75 (0-50)
[2024-10-23 13:28] LABS: Anisocytosis 2+; Hypochromasia 1+; Microcytosis 2+
--- NOTE | 2024-10-23 14:26 | ED.FEMALEGU ---
HPI - Female Genitourinary General Chief complaint: Urogenital-Female Stated complaint: Possible UTI , Changed behavior Time Seen by Provider: 10/23/24 11:46 Source: patient and family Mode of arrival: Wheelchair History of Present Illness HPI Narrative: 79-year-old female patient with a history of dementia who was sent over by assisted living for worsening confusion today with no fever, chills or complaints otherwise. She was somewhat argumentative and has been more confused than usual. UTI suspected. Related Data Previous Rx's ?Medication ?Instructions ?Recorded doxycycline monohydrate 100 mg 100 mg PO BID #20 caps 06/04/24 capsule ondansetron HCl 4 mg tablet 4 mg PO Q8H PRN nausea and 06/26/24 vomiting #30 tabs nitrofurantoin 100 mg PO BID #12 caps 10/23/24 monohydrate/macrocrystals 100 mg capsule (Macrobid) Allergies Allergy/AdvReac Type Severity Reaction Status Date / Time No Known Drug Allergies Allergy Unverified 06/04/24 12:47 Review of Systems Review of Systems Narrative: GENERAL: Denies chills, fatigue, malaise, fever, sweats. HEENT: Denies sinus pain, ear pain, sore throat, difficulty swallowing, dizziness. RESPIRATORY: Denies dyspnea, cough, wheezing, hemoptysis, sputum. CARDIOVASCULAR: Denies chest pain, palpitations, orthopnea, edema, GASTROINTESTINAL: Denies nausea, vomiting, abdominal pain, diarrhea, constipation, melena. : Denies dysuria, frequency, incontinence, hematuria, urinary retention. MUSCULOSKELETAL: denies weakness, joint pain, or bony pain SKIN: Denies rash, skin lesions, or other NEUROLOGIC: See HPI. Otherwise Denies weakness, headache, numbness, change in speech, seizures, incoordination. PSYCHIATRIC: See HPI. Otherwise No concerning psychosocial issues. 12 point review of systems is negative except for those stated above Exam Narrative Exam Narrative: GENERAL: 79 year old patient appears stated age. Well-developed patient, in mild distress. HEAD: Atraumatic. Normocephalic. EYES: Pupils equal round and reactive. Extraocular motions intact. No scleral icterus. No injection or drainage. CARDIOVASCULAR: Regular rate and rhythm without murmurs, gallops, or rubs. RESPIRATORY: Clear to auscultation. Breath sounds equal bilaterally. No wheezes, rales, or rhonchi. GASTROINTESTINAL: Abdomen soft, non-tender, nondistended. EXTREMITIES: No edema or joint tenderness. BACK: Nontender without deformity or crepitance. No flank tenderness. NEURO: Alert and oriented to name only. This is her baseline. SKIN: No rash or erythema of visible areas Initial Vital Signs Initial Vital Signs: Vital Signs Temperature 97.8 F 10/23/24 11:11 Pulse Rate 88 10/23/24 11:11 Respiratory Rate 20 10/23/24 11:11 Blood Pressure 135/63 10/23/24 11:11 Pulse Oximetry 98 10/23/24 11:11 Oxygen Delivery Method Room Air 10/23/24 11:11 Course Orders Ordered: ED Orders 10/23/24 11:56 Urine Culture Stat Urine Microscopic Stat 10/23/24 12:54 CBC Auto Diff [Complete Blood Count AUTO DIFF] Stat CMP [Comprehensive Metabolic Panel] Stat Discontinued Medications Nitrofurantoin Macrocrystals (Nitrofurantoin Er 100 Mg Capsule) 100 mg PO NOW ONE Stop: 10/23/24 14:20 Vital Signs Vital signs: Vital Signs - 8 hr 10/23/24 11:11 10/23/24 11:30 10/23/24 11:32 Temperature 97.8 F Pulse Rate 88 85 Respiratory Rate 20 Blood Pressure 135/63 121/58 L Pulse Oximetry 98 95 Oxygen Delivery Method Room Air 10/23/24 11:32 Temperature Pulse Rate 82 Respiratory Rate Blood Pressure Pulse Oximetry 95 Oxygen Delivery Method MDM - Female Genitourinary Lab Data Attestation: I reviewed the patient's lab results. Lab results narrative: Anemia and UTI evident 10/23/24 12:54 10/23/24 12:54 Labs: Lab Results 10/23/24 10/23/24 Range/Units 11:56 12:54 WBC 9.0 (4.5-11.0) X10^3/uL RBC 4.38 (4.0-5.2) X10^6/uL Hgb 8.6 L (12.0-16.0) g/dL Hct 28.1 L (36-46) % MCV 64.0 L (80-100) fL MCH 19.5 L (26-34) PG MCHC 30.5 (30-36) % RDW 18.4 H (11.6-14.8) % Plt Count 221 (150-400) X10^3/uL Neut % (Auto) 65.6 (50-75) % Lymph % (Auto) 23.6 L (25-40) % [place] % (Auto) 8.1 (3-14) % Eos % (Auto) 1.7 L (2-4) % Baso % (Auto) 1.0 (0-2) % Neut # (Auto) 5900 (5024-7768) /uL Lymph # (Auto) 2100 (8666-1953) /uL [place] # (Auto) 700 (0-900) /uL Eos # (Auto) 200 (0-450) /uL Baso # (Auto) 100 (0-100) /uL Platelet Estimate Adequate on smear Clumped Platelets RBC Morphology See below Hypochromasia 1+ H Anisocytosis 2+ H Microcytosis 2+ H Sodium 141 (137-145) mmol/L Potassium 4.5 (3.4-5.1) mmol/L Chloride 101 (98-107) mmol/L Carbon Dioxide 29 (22-32) mmol/L BUN 21 H (7-17) mg/dL Creatinine 0.85 (0.52-1.04) mg/dL Estimated GFR > 60 (>60) mL/min BUN/Creatinine Ratio 24.7 H (6-22) Glucose 103 H (70-99) mg/dL Calcium 9.2 (8.4-10.2) mg/dL Total Bilirubin 0.6 (0.2-1.3) mg/dL AST 36 (14-36) IU/L ALT 10 (<35) IU/L Alkaline Phosphatase 155 H (38-126) U/L Total Protein 8.5 H (6.3-8.2) g/dL Albumin 4.7 (3.5-5.0) g/dL Globulin 3.8 (1.7-4.1) g/dL Albumin/Globulin Ratio 1.2 (1.0-2.8) Urine RBC None seen (0-5/HPF) Urine WBC 10-30/hpf H (0-5/HPF) Ur Squamous Epith Cells 1-5 /hpf (0-5/HPF) Urine Bacteria Many (>30) H (None) Ur Culture Indicated? Specimen cultured Vol Urine Centrifuged 10ml (spun) Urine Dip Bedside Urine Glucose Negative Bedside Urine Bilirubin - Negative Bedside Urine Ketone - Negative Urine Specific [place] 1.010 Bedside Urine Occult Blood - Negative Bedside Urine pH 6.5 Bedside Urine Protein - Negative Bedside Urine Urobilinogen - Negative Bedside Urine Nitrite + Positive Bedside Urine Leukocytes +++ 500 Esterase MDM Narrative Medical decision making narrative: Patient has mild confusion in the setting of dementia and evidence of UTI which probably explains her confusion. Started on Macrobid. She does have good renal function to metabolize the Macrobid. She also has anemia an unknown if chronic. Note to providers to follow up on anemia for further workup as needed. Return to the ER if worse Discharge Plan Departure Patient Disposition: Home Clinical Impression: Urinary tract infection, Acute confusion, Anemia Instructions: Anemia, DI for Urinary Tract Infection (UTI) Activity Restrictions/Additional Instructions: Assessment: Confusion probably secondary to urinary tract infection evident on urinalysis. Moderate anemia, unknown if chronic Plan: Macrobid for 6 days. Hydration. Monitor symptoms and follow up with primary care. Discussed anemia with primary care. May need further workup. Return to the ER if worse Prescriptions: New nitrofurantoin monohyd/m-cryst [Macrobid] 100 mg capsule 100 mg PO BID Qty: 12 0RF Rx Instructions: must administer with a meal/food No Action ondansetron HCl 4 mg tablet 4 mg PO Q8H PRN (Reason: nausea and vomiting) Qty: 30 0RF doxycycline monohydrate 100 mg capsule 100 mg PO BID Qty: 20 0RF Stand Alone Forms: Patient Portal/API
[2024-10-23] MEDS: NITROFURANTOIN ER 100 MG CAPSULE PO (14:29)
== END 2024-10-23 14:34 | disposition home or self-care (01) ==
PROVIDERS: Emergency Provider Emergency Medicine
DX: N39.0 Urinary tract infection, site not specified (principal); R41.0 Disorientation, unspecified; D64.9 Anemia, unspecified
CPT/HCPCS: 80053; 81003; 81015; 85025; 87077; 87086; 87186; 99283

== ENCOUNTER → 2024-10-31 06:20 | Outpatient (ROUT) | payer MEDICARE, MEDICAID, SELFPAY ==
[2024-10-31 07:49] LABS: Hematocrit 27.6 % (36-46); Hemoglobin 8.5 g/dL (12.0-16.0); Mean Corpuscular HGB Conc 30.8 % (30-36); Mean Corpuscular Hemoglobin 19.6 PG (26-34); Mean Corpuscular Volume 63.6 fL (80-100); Platelet Count 252 X10^3/uL (150-400)
[2024-10-31 07:50] LABS: Blood Urea Nitrogen 19 mg/dL (7-17); Calcium 9.5 mg/dL (8.4-10.2); Carbon Dioxide 28 mmol/L (22-32); Chloride 100 mmol/L (98-107); Estimated Glomerular Filt Rate > 60 mL/min (>60); Glucose 108 mg/dL (70-99); HEMOLYSIS < 15 (0-50); Iron 28 ug/dL (37-170); Magnesium 2.2 mg/dL (1.6-2.3); Potassium 3.8 mmol/L (3.4-5.1); Sodium 137 mmol/L (137-145)
[2024-10-31 08:57] LABS: Folate 15.0 ng/mL (2.76-20.0); Vitamin B12 510 pg/mL (239-931)
== END ==
LOC: LAB 06:20
PROVIDERS: Visit Provider Registered Nurse
DX: D64.9 Anemia, unspecified (principal); R60.9 Edema, unspecified
CPT/HCPCS: 36415; 80048; 82607; 82746; 83540; 83735; 85027

== ENCOUNTER → 2024-11-07 06:33 | Outpatient (ROUT) | payer MEDICARE, MEDICAID, SELFPAY ==
[2024-11-07 09:13] LABS: Hematocrit 25.7 % (36-46); Hemoglobin 8.0 g/dL (12.0-16.0); Mean Corpuscular HGB Conc 31.1 % (30-36); Mean Corpuscular Hemoglobin 19.6 PG (26-34); Mean Corpuscular Volume 63.0 fL (80-100); Platelet Count 218 X10^3/uL (150-400)
[2024-11-07 09:36] LABS: Iron 33 ug/dL (37-170)
[2024-11-07 09:42] LABS: Blood Urea Nitrogen 20 mg/dL (7-17); Calcium 9.1 mg/dL (8.4-10.2); Carbon Dioxide 29 mmol/L (22-32); Chloride 98 mmol/L (98-107); Estimated Glomerular Filt Rate > 60 mL/min (>60); Glucose 138 mg/dL (70-99); HEMOLYSIS < 15 (0-50); Magnesium 1.9 mg/dL (1.6-2.3); Potassium 3.8 mmol/L (3.4-5.1); Sodium 137 mmol/L (137-145)
[2024-11-07 10:42] LABS: Folate 13.4 ng/mL (2.76-20.0); Vitamin B12 436 pg/mL (239-931)
== END ==
PROVIDERS: Visit Provider Registered Nurse
DX: D64.9 Anemia, unspecified (principal); R60.9 Edema, unspecified
CPT/HCPCS: 36415; 80048; 82607; 82746; 83540; 83735; 85027; 87086

== ENCOUNTER 2025-03-17 11:11 | Emergency (ER) | payer MEDICARE, MEDICAID, SELFPAY ==
[2025-03-17] VITALS (30 sets, daily range): BP systolic 86–124; BP diastolic 46–80; PULSE 69–85; RESP 15–44; TEMP 36.6; O2SAT 86–99; BMI 35.6
--- NOTE | 2025-03-17 11:21 | DI.RAD.S_ITS ---
PROCEDURE: XR CHEST 1V INDICATIONS: Chest Pain TECHNIQUE: One view of the chest was acquired. COMPARISON: [facility], CR, XR CHEST 1V, 05/26/2024, 14:27. FINDINGS: Surgical changes and devices: None. Lungs and pleura: Low lung volumes with increased prominence of the interstitial markings. Trace bilateral pleural effusions. No pneumothorax. Mediastinum: Mediastinal contours appear normal. Heart size is enlarged, decreased in prominence compared to prior exam. Bones and chest wall: No suspicious bony lesions. Overlying soft tissues appear unremarkable. IMPRESSION: Interstitial pulmonary edema with trace bilateral pleural effusions. Dictated by: Yeison Hughes M.D. on 03/17/2025 at 11:14 Approved by: Yeison Hughes M.D. on 03/17/2025 at 11:15
--- NOTE | 2025-03-17 11:27 | EKG_ITS ---
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
[2025-03-17 11:30] LABS: Add Manual Diff / Slide Review NO; Hematocrit 36.8 % (36-46); Hemoglobin 12.0 g/dL (12.0-16.0); Lymphocytes Absolute Auto 1400 /uL (1100-4500); Mean Corpuscular HGB Conc 32.7 % (30-36); Mean Corpuscular Hemoglobin 25.5 PG (26-34); Mean Corpuscular Volume 78.1 fL (80-100); Platelet Count 226 X10^3/uL (150-400)
[2025-03-17 11:42] LABS: INR 1.1 (0.9-1.3); Prothrombin Time 12.5 SECONDS (9.4-12.5)
[2025-03-17 11:44] LABS: Alanine Aminotransferase 11 IU/L (<35); Albumin 4.6 g/dL (3.5-5.0); Albumin Globulin Ratio 1.2 (1.0-2.8); Alkaline Phosphatase 171 U/L (38-126); Blood Urea Nitrogen 21 mg/dL (7-17); Calcium 9.3 mg/dL (8.4-10.2); Carbon Dioxide 30 mmol/L (22-32); Chloride 100 mmol/L (98-107); Creatine Kinase 44 U/L (30-135); Estimated Glomerular Filt Rate > 60 mL/min (>60); Globulin 3.7 g/dL (1.7-4.1); Glucose 111 mg/dL (70-99); HEMOLYSIS < 15 (0-50); Lipase 51 U/L (23-300); Magnesium 2.1 mg/dL (1.6-2.3); Potassium 3.9 mmol/L (3.4-5.1); Sodium 138 mmol/L (137-145); Total Protein 8.3 g/dL (6.3-8.2)
[2025-03-17 11:45] LABS: PTT Partial Thromboplastin Tim 30 SECONDS (25.1-36.5)
[2025-03-17 11:56] LABS: NT-proBNP (BNP-Adult 18+) 175 pg/mL (<450); Troponin I < 0.012 ng/mL (0.01-0.034)
--- NOTE | 2025-03-17 11:57 | ED_ITS ---
HPI - Chest Pain General Chief Complaint: Chest Pain Stated Complaint: Chest Pain Time Seen by Provider: 03/17/25 11:23 Source: patient and EMS Mode of arrival: EMS Limitations: other History of Present Illness HPI narrative: Patient is a 80-year-old female history of dementia lives in memory Care presenting today with chest pain. Patient now denies any kind of chest pain having some nausea but noted to be 80% on room air and mildly hypotensive. She is actually quite drapery hand and fun. She does have a chronic wound on her left leg it does look like she is being followed by wound care based on the dressing but she is not sure when it was last changed it is mildly erythematous. She reports it is not really getting any better. She denies any kind of chest pain or shortness of breath. She sounds like maybe sometimes she is on oxygen but not always. She reports that she used to be a smoker she is no longer smoking. Related Data Previous Rx's ?Medication ?Instructions ?Recorded doxycycline monohydrate 100 mg 100 mg PO BID #20 caps 06/04/24 capsule ondansetron HCl 4 mg tablet 4 mg PO Q8H PRN nausea and 06/26/24 vomiting #30 tabs nitrofurantoin 100 mg PO BID #12 caps 10/23 monohydrate/macrocrystals 100 mg capsule (Macrobid) Allergies Allergy/AdvReac Type Severity Reaction Status Date / Time No Known Drug Allergies Allergy Verified 03/17/25 11:27 Patient History Social History Smoking Status: Former smoker Smoking Status: Former smoker Alcohol type: hard liquor Exam Initial Vital Signs Initial Vital Signs: Vital Signs Temperature 97.9 F 03/17/25 11:14 Pulse Rate 80 03/17/25 11:14 Respiratory Rate 18 03/17/25 11:14 Blood Pressure 107/60 03/17/25 11:14 Pulse Oximetry 88 L 03/17/25 11:14 Oxygen Delivery Method Room Air 03/17/25 11:14 GENERAL: Alert pleasant 80-year-old female and in no acute distress. HEENT: Head atraumatic,EOMI, pupils reactive, face symmetric, moist mucous membranes CARDIOVASCULAR: Regular rate and rhythm without murmurs, rubs or gallops. RESPIRATORY: Breath sounds equal bilaterally, no wheezes rales or rhonchi. ABDOMEN: Soft, nontender. Normoactive bowel sounds all 4 quadrants. No guarding or rebound. No epigastric pain negative right upper quadrant pain EXTREMITIES: Normal range of motion, no clubbing or edema. Neurovascularly intact NEUROLOGICAL: Alert and oriented x4.Normal gait and speech. Cranial nerves II through XII grossly intact. SKIN: Left anterior leg distally is some mild erythema wound which is foul smelling Course Orders Ordered: ED Orders 03/17/25 11:21 XR chest 1V Stat EKG-12 Lead Stat 03/17/25 11:22 Complete Blood Count AUTO DIFF Stat Comprehensive Metabolic Panel Stat D Dimer Stat Lipase Stat Magnesium Stat NT-proBNP (BNP-Adult 18+) Stat PTT Partial Thromboplastin Magan Stat Prothrombin Time INR Stat Troponin & CK Cardiac Panel Stat 03/17/25 12:00 Covid-19 + FLU A/B + RSV - PCR Stat 03/17/25 12:37 CT angio chest PE protocol Stat 03/17/25 13:05 Troponin I Stat 03/17/25 16:20 Hemoglobin and Hematocrit Stat Discontinued Medications Aspirin (Aspirin 81 Mg Chew Tab) 324 mg PO NOW ONE Stop: 03/17/25 11:21 Last Admin: 03/17/25 11:53 Dose: Not Given Documented By: SB Sodium Chloride (Normal Saline 0.9%) 1,000 mls @ 1,000 mls/hr IV BOLUS ONE Stop: 03/17/25 12:56 Last Infusion: 03/17/25 13:25 Dose: Infused Documented By: Admin: 03/17/25 12:06 Dose: 1,000 mls/hr Documented By: YEISON Lorazepam (Lorazepam 2 Mg/Ml Inj) 0.5 mg IV NOW ONE Stop: 03/17/25 16:16 Last Admin: 03/17/25 16:25 Dose: 0.5 mg Documented By: HENRRY Lorazepam (Lorazepam 2 Mg/Ml Inj) 1 mg IV NOW ONE Stop: 03/17/25 16:56 Last Admin: 03/17/25 17:09 Dose: 1 mg Documented By: MASON Vital Signs Vital signs: Vital Signs - 8 hr 03/17/25 11:14 03/17/25 11:30 03/17/25 11:41 Temperature 97.9 F Pulse Rate 80 79 Respiratory Rate 18 44 H Blood Pressure 107/60 108/54 L Pulse Oximetry 88 L 98 Oxygen Delivery Method Room Air Oxygen Flow Rate 03/17/25 11:42 03/17/25 11:42 03/17/25 11:45 Temperature Pulse Rate 76 74 Respiratory Rate 20 15 Blood Pressure 107/61 Pulse Oximetry 98 98 Oxygen Delivery Method Oxygen Flow Rate 03/17/25 11:45 03/17/25 11:49 03/17/25 11:49 Temperature Pulse Rate 78 Respiratory Rate 19 Blood Pressure 90/55 L 98/52 L Pulse Oximetry 98 Oxygen Delivery Method Oxygen Flow Rate 03/17/25 11:51 03/17/25 11:51 03/17/25 12:00 Temperature Pulse Rate 75 Respiratory Rate 22 Blood Pressure 98/51 L 102/53 L Pulse Oximetry 98 Oxygen Delivery Method Oxygen Flow Rate 03/17/25 12:00 03/17/25 12:10 03/17/25 12:10 Temperature Pulse Rate 73 74 Respiratory Rate 22 25 H Blood Pressure 102/56 L Pulse Oximetry 99 98 Oxygen Delivery Method Oxygen Flow Rate 03/17/25 12:20 03/17/25 12:20 03/17/25 12:30 Temperature Pulse Rate 71 74 Respiratory Rate 17 17 Blood Pressure 92/46 L Pulse Oximetry 99 97 Oxygen Delivery Method Oxygen Flow Rate 03/17/25 12:31 03/17/25 12:31 03/17/25 12:44 Temperature Pulse Rate 74 78 Respiratory Rate 30 H 19 Blood Pressure 110/53 L Pulse Oximetry 97 94 Oxygen Delivery Method Oxygen Flow Rate 03/17/25 12:44 03/17/25 13:02 03/17/25 13:30 Temperature Pulse Rate 71 70 Respiratory Rate 28 H 26 H Blood Pressure 112/56 L Pulse Oximetry 86 L 99 Oxygen Delivery Method Oxygen Flow Rate 03/17/25 14:00 03/17/25 14:00 03/17/25 14:11 Temperature Pulse Rate 77 77 Respiratory Rate 17 29 H Blood Pressure 117/54 L Pulse Oximetry 97 98 Oxygen Delivery Method Oxygen Flow Rate 03/17/25 14:11 03/17/25 14:20 03/17/25 14:20 Temperature Pulse Rate 72 Respiratory Rate 24 Blood Pressure 92/55 L 106/53 L Pulse Oximetry 97 Oxygen Delivery Method Oxygen Flow Rate 03/17/25 14:30 03/17/25 14:30 03/17/25 14:41 Temperature Pulse Rate 69 82 Respiratory Rate Blood Pressure 110/54 L Pulse Oximetry 99 96 Oxygen Delivery Method Nasal Cannula Oxygen Flow Rate 2 03/17/25 14:41 03/17/25 14:51 03/17/25 14:51 Temperature Pulse Rate 80 Respiratory Rate Blood Pressure 91/53 L 86/54 L Pulse Oximetry 95 Oxygen Delivery Method Nasal Cannula Oxygen Flow Rate 2 03/17/25 14:52 03/17/25 14:52 03/17/25 15:00 Temperature Pulse Rate 75 72 Respiratory Rate 23 Blood Pressure 86/47 L Pulse Oximetry 95 97 Oxygen Delivery Method Nasal Cannula Nasal Cannula Oxygen Flow Rate 2 2 03/17/25 15:00 03/17/25 15:09 03/17/25 15:09 Temperature Pulse Rate 76 Respiratory Rate 22 Blood Pressure 96/50 L 115/55 L Pulse Oximetry 96 Oxygen Delivery Method Nasal Cannula Nasal Cannula Oxygen Flow Rate 2 2 03/17/25 16:13 03/17/25 16:13 03/17/25 16:30 Temperature Pulse Rate 79 Respiratory Rate 23 Blood Pressure 124/59 L 108/58 L Pulse Oximetry 91 Oxygen Delivery Method Room Air Oxygen Flow Rate 03/17/25 16:30 03/17/25 17:00 03/17/25 17:01 Temperature Pulse Rate 79 85 Respiratory Rate 23 24 Blood Pressure 120/61 Pulse Oximetry 94 98 Oxygen Delivery Method Oxygen Flow Rate 03/17/25 17:01 03/17/25 17:30 03/17/25 17:31 Temperature Pulse Rate 83 84 85 Respiratory Rate 18 22 20 Blood Pressure Pulse Oximetry 98 92 93 Oxygen Delivery Method Oxygen Flow Rate 03/17/25 17:31 Temperature Pulse Rate Respiratory Rate Blood Pressure 124/80 Pulse Oximetry Oxygen Delivery Method Oxygen Flow Rate MDM - Chest Pain Lab Data 03/17/25 16:20 03/17/25 11:22 Labs: Lab Results 03/17/25 03/17/25 03/17/25 Range/Units 11:22 12:00 13:05 WBC 10.2 (4.5-11.0) X10^3/uL RBC 4.71 (4.0-5.2) X10^6/uL Hgb 12.0 (12.0-16.0) g/dL Hct 36.8 (36-46) % MCV 78.1 L (80-100) fL MCH 25.5 L (26-34) PG MCHC 32.7 (30-36) % RDW 17.5 H (11.6-14.8) % Plt Count 226 (150-400) X10^3/uL Neut % (Auto) 77.1 H (50-75) % Lymph % (Auto) 13.8 L (25-40) % [place] % (Auto) 7.2 (3-14) % Eos % (Auto) 1.2 L (2-4) % Baso % (Auto) 0.7 (0-2) % Neut # (Auto) 7800 H (9381-0489) /uL Lymph # (Auto) 1400 (6834-9295) /uL [place] # (Auto) 700 (0-900) /uL Eos # (Auto) 100 (0-450) /uL Baso # (Auto) 100 (0-100) /uL PT 12.5 (9.4-12.5) SECONDS INR 1.1 (0.9-1.3) APTT 30 (25.1-36.5) SECONDS D-Dimer 2183 H (<500) ng/ml Sodium 138 (137-145) mmol/L Potassium 3.9 (3.4-5.1) mmol/L Chloride 100 (98-107) mmol/L Carbon Dioxide 30 (22-32) mmol/L BUN 21 H (7-17) mg/dL Creatinine 0.89 (0.52-1.04) mg/dL Estimated GFR > 60 (>60) mL/min BUN/Creatinine Ratio 23.6 H (6-22) Glucose 111 H (70-99) mg/dL Calcium 9.3 (8.4-10.2) mg/dL Magnesium 2.1 (1.6-2.3) mg/dL Total Bilirubin 0.4 (0.2-1.3) mg/dL AST 24 (14-36) IU/L ALT 11 (<35) IU/L Alkaline Phosphatase 171 H (38-126) U/L Total Creatine Kinase 44 (30-135) U/L Troponin I < 0.012 < 0.012 (0.01-0.034) ng/mL NT-Pro-B Natriuret Pep 175 (<450) pg/mL Total Protein 8.3 H (6.3-8.2) g/dL Albumin 4.6 (3.5-5.0) g/dL Globulin 3.7 (1.7-4.1) g/dL Albumin/Globulin Ratio 1.2 (1.0-2.8) Lipase 51 (23-300) U/L SARS-CoV-2 (PCR) Negative (Negative) Influenza A (RT-PCR) Flu a negative (NEGATIVE) Influenza B (RT-PCR) Flu b negative (NEGATIVE) RSV (PCR) Negative (Negative) 03/17/25 Range/Units 16:20 WBC (4.5-11.0) X10^3/uL RBC (4.0-5.2) X10^6/uL Hgb 11.3 L (12.0-16.0) g/dL Hct 34.9 L (36-46) % MCV (80-100) fL MCH (26-34) PG MCHC (30-36) % RDW (11.6-14.8) % Plt Count (150-400) X10^3/uL Neut % (Auto) (50-75) % Lymph % (Auto) (25-40) % [place] % (Auto) (3-14) % Eos % (Auto) (2-4) % Baso % (Auto) (0-2) % Neut # (Auto) (3900-7344) /uL Lymph # (Auto) (1807-2373) /uL [place] # (Auto) (0-900) /uL Eos # (Auto) (0-450) /uL Baso # (Auto) (0-100) /uL PT (9.4-12.5) SECONDS INR (0.9-1.3) APTT (25.1-36.5) SECONDS D-Dimer (<500) ng/ml Sodium (137-145) mmol/L Potassium (3.4-5.1) mmol/L Chloride (98-107) mmol/L Carbon Dioxide (22-32) mmol/L BUN (7-17) mg/dL Creatinine (0.52-1.04) mg/dL Estimated GFR (>60) mL/min BUN/Creatinine Ratio (6-22) Glucose (70-99) mg/dL Calcium (8.4-10.2) mg/dL Magnesium (1.6-2.3) mg/dL Total Bilirubin (0.2-1.3) mg/dL AST (14-36) IU/L ALT (<35) IU/L Alkaline Phosphatase (38-126) U/L Total Creatine Kinase (30-135) U/L Troponin I (0.01-0.034) ng/mL NT-Pro-B Natriuret Pep (<450) pg/mL Total Protein (6.3-8.2) g/dL Albumin (3.5-5.0) g/dL Globulin (1.7-4.1) g/dL Albumin/Globulin Ratio (1.0-2.8) Lipase (23-300) U/L SARS-CoV-2 (PCR) (Negative) Influenza A (RT-PCR) (NEGATIVE) Influenza B (RT-PCR) (NEGATIVE) RSV (PCR) (Negative) Imaging Data Chest x-ray: Radiologist's Impression: PROCEDURE: XR CHEST 1V INDICATIONS: Chest Pain TECHNIQUE: One view of the chest was acquired. COMPARISON: [facility], CR, XR CHEST 1V, 05/26/2024, 14:27. FINDINGS: Surgical changes and devices: None. Lungs and pleura: Low lung volumes with increased prominence of the interstitial markings. Trace bilateral pleural effusions. No pneumothorax. Mediastinum: Mediastinal contours appear normal. Heart size is enlarged, decreased in prominence compared to prior exam. Bones and chest wall: No suspicious bony lesions. Overlying soft tissues appear unremarkable. IMPRESSION: Interstitial pulmonary edema with trace bilateral pleural effusions. Dictated by: Yeison Hughes M.D. on 03/17/2025 at 11:14 CT scan - chest: Radiologist's Impression: PROCEDURE: CT ANGIO CHEST PE PROTOCOL INDICATIONS: high dimer hypoxic TECHNIQUE: After the administration of intravenous contrast, 2 mm thick sections acquired from the pulmonary apices to the posterior costophrenic angles. 3-dimensional maximum intensity projection (MIP) coronal and sagittal reformats were then acquired through the thorax. For radiation dose reduction, the following was used: automated exposure control, adjustment of mA and/or kV according to patient size. COMPARISON: [facility], CT, CT LOW DOSE LUNG CA SCREENING, 03/21/2021, 13:49. FINDINGS: Quality: Diagnostic. Vasculature: Aorta: No aneurysm. Thick atherosclerotic calcified and noncalcified plaques. Pulmonary arteries: No emboli. Lungs: Parenchyma: Diffuse fibrotic changes, most pronounced at the lung apices. Airways: Patent. Pleura: No pneumothorax. No pleural effusion. Mediastinum: Thyroid: Unremarkable. Esophagus: Large hiatal hernia containing majority of stomach. The esophagus is also fluid-filled with dense material. Foci of hyperdense material within the expected location of the esophageal lumen and distal stomach noted. Heart: Normal size. Lymph nodes: No adenopathy. Other: Chest wall: Unremarkable. Upper abdomen: Unremarkable. Bones: No aggressive osseous lesion. IMPRESSION: Dense material within the esophagus and stomach within hiatal hernia could represent active intraluminal hemorrhage. Mediastinal hematoma could appear similar. Pulmonary fibrosis. No pulmonary embolism. Acute findings discussed with Dr. Daugherty by myself by telephone at 1:33 p.m. PST 03/17/2025. Dictated by: Maverick Cheatham M.D. on 03/17/2025 at 13:15 Approved by: Maverick Cheatham M.D. on 03/17/2025 at 13:33 ECG Data Attestation: I personally reviewed and interpreted this ECG as follows: Prior ECG tracings: available for review Interpretation: Normal sinus rhythm rate 73 MT interval 166 QRS [address] changes no T- wave inversions MDM Narrative Medical decision making narrative: MDM CC: Chest pain Complicating co-morbidities: Dementia Data collected from: Patient and chart Medical records reviewed: Records from October Differential considered: Acute coronary syndrome pulmonary embolism pneumonia sepsis Exam documented above, pertinent findings include: Alert very well-appearing 80-year-old female no significant dyspnea she has a chronic wound on her left leg with some mild erythema Lab Test results independently reviewed as above. Pertinent findings: CBC no abnormalities CMP no electrolyte abnormalities Bilirubin liver enzymes lipase within normal limits Troponin negative x2 BNP 175 D-dimer 2183 Independently reviewed EKG as above Sinus rhythm no ischemia Imaging studies independently reviewed: Chest x-ray interstitial pulmonary edema trace effusion CT chest no pulmonary embolism Radiology Dr. Cheatham. There is concern for esophageal intraluminal hemorrhage or hematoma. Consultations: Dr. Gupta in ED to see and evaluate patient recommending NG to rule out any kind of active bleeding Treatments: Ativan for sedation for NG Re-evaluations: [ ] Discussion: Patient 80-year-old female presenting today with chest pain but is completely asymptomatic now. She has 2- troponins she is found to have very elevated D-dimer so CT angio was done due to concurrent hypoxia of 88%. She does have pulmonary fibrosis but no pulmonary embolism. Radiology called concern for possible esophageal hemorrhage or hematoma. She is not actively vomiting blood there is no coffee-ground emesis she is not anemic vitals are stable besides some hypoxia. Surgery was consulted in regards to possible hemorrhage. She is not actively vomiting she is not anemic repeat H&H is relatively stable it is actually much better than what it was previously. Surgery place the NG tube which did not show any active blood or coffee-ground emesis. Concern for active esophageal bleeding has been ruled out. Patient remains stable at this time no need for admission or other. There is concern for some underlying pulmonary fibrosis which may be causing some of her shortness of breath. I called and spoke with daughter updated her on what happened in the ED. She is going to come and pick patient up and take her to [place] Discharge Plan Departure Patient Disposition: Home Clinical Impression: Atypical chest pain Instructions: DI for Atypical Chest Pain Activity Restrictions/Additional Instructions: *You have been diagnosed with atypical chest pain *What to do: At this time please follow-up with PCP *Continue to take medications as directed *Follow up with your primary care provider in 2-3 days or call [phone] *Return to ER if you should have any new, worsening or concerning symptoms Prescriptions: No Action ondansetron HCl 4 mg tablet 4 mg PO Q8H PRN (Reason: nausea and vomiting) Qty: 30 0RF nitrofurantoin monohyd/m-cryst [Macrobid] 100 mg capsule 100 mg PO BID Qty: 12 0RF Rx Instructions: must administer with a meal/food doxycycline monohydrate 100 mg capsule 100 mg PO BID Qty: 20 0RF Stand Alone Forms: Patient Portal/API
[2025-03-17] MEDS: SODIUM CHLORIDE 0.9% 1,000 ML 1000 ML IV (12:06)
--- NOTE | 2025-03-17 12:37 | DI.CT.S_ITS ---
PROCEDURE: CT ANGIO CHEST PE PROTOCOL INDICATIONS: high dimer hypoxic TECHNIQUE: After the administration of intravenous contrast, 2 mm thick sections acquired from the pulmonary apices to the posterior costophrenic angles. 3-dimensional maximum intensity projection (MIP) coronal and sagittal reformats were then acquired through the thorax. For radiation dose reduction, the following was used: automated exposure control, adjustment of mA and/or kV according to patient size. COMPARISON: [facility], CT, CT LOW DOSE LUNG CA SCREENING, 03/21/2021, 13:49. FINDINGS: Quality: Diagnostic. Vasculature: Aorta: No aneurysm. Thick atherosclerotic calcified and noncalcified plaques. Pulmonary arteries: No emboli. Lungs: Parenchyma: Diffuse fibrotic changes, most pronounced at the lung apices. Airways: Patent. Pleura: No pneumothorax. No pleural effusion. Mediastinum: Thyroid: Unremarkable. Esophagus: Large hiatal hernia containing majority of stomach. The esophagus is also fluid-filled with dense material. Foci of hyperdense material within the expected location of the esophageal lumen and distal stomach noted. Heart: Normal size. Lymph nodes: No adenopathy. Other: Chest wall: Unremarkable. Upper abdomen: Unremarkable. Bones: No aggressive osseous lesion. IMPRESSION: Dense material within the esophagus and stomach within hiatal hernia could represent active intraluminal hemorrhage. Mediastinal hematoma could appear similar. Pulmonary fibrosis. No pulmonary embolism. Acute findings discussed with Dr. Daugherty by myself by telephone at 1:33 p.m. PST 03/17/2025. Dictated by: Maverick Cheatham M.D. on 03/17/2025 at 13:15 Approved by: Maverick Cheatham M.D. on 03/17/2025 at 13:33
[2025-03-17 12:49] LABS: Influenza A - CEPHEID Flu A NEGATIVE (NEGATIVE); Influenza B - CEPHEID Flu B NEGATIVE (NEGATIVE)
[2025-03-17 13:06] LABS: COVID-19 CEPHEID 4-PLEX PCR Negative (Negative)
[2025-03-17 13:40] LABS: Troponin I < 0.012 ng/mL (0.01-0.034)
--- NOTE | 2025-03-17 14:38 | PC.NURSE ---
BUSINESS SUPPORT SPECIALIST and other staff assisted pt to from bathroom
--- NOTE | 2025-03-17 15:29 | PC.NURSE ---
pt moved to room 11 from rm 13, xfer of care from Karlie to Arabella, report given
[2025-03-17 16:30] LABS: Hematocrit 34.9 % (36-46); Hemoglobin 11.3 g/dL (12.0-16.0)
--- NOTE | 2025-03-17 17:13 | P.CONS_ITS ---
History of Present Illness Consult details Date Patient Seen: 03/17/25 Chief complaint: Chest Pain Narrative: The patient is an 80-year-old female with dementia who presented to the emergency department with chest pain which she subsequently denied. Workup included an elevated D-dimer and a subsequent CTA of the chest suggested the possibility of active bleeding in the stomach. The patient is extremely poor historian. Meds Home Medications and Allergies Home Medications ?Medication ?Instructions ?Recorded ?Confirmed ?Type doxycycline monohydrate 100 mg 100 mg PO BID #20 caps 06/04/24 Rx capsule ondansetron HCl 4 mg tablet 4 mg PO Q8H PRN nausea and 06/26/24 Rx vomiting #30 tabs nitrofurantoin 100 mg PO BID #12 caps 10/23 Rx monohydrate/macrocrystals 100 mg capsule (Macrobid) Allergies Allergy/AdvReac Type Severity Reaction Status Date / Time No Known Drug Allergies Allergy Verified 03/17/25 11:27 Review of Systems Review of Systems ROS: Yes unobtainable due to mental status Exam Vital Signs (past 8 hours): - 03/17/25 11:14 03/17/25 11:30 03/17/25 11:41 Temperature 97.9 F Pulse Rate 80 79 Respiratory Rate 18 44 H Blood Pressure 107/60 108/54 L Pulse Oximetry 88 L 98 Oxygen Delivery Method Room Air Oxygen Flow Rate 03/17/25 11:42 03/17/25 11:42 03/17/25 11:45 Temperature Pulse Rate 76 74 Respiratory Rate 20 15 Blood Pressure 107/61 Pulse Oximetry 98 98 Oxygen Delivery Method Oxygen Flow Rate 03/17/25 11:45 03/17/25 11:49 03/17/25 11:49 Temperature Pulse Rate 78 Respiratory Rate 19 Blood Pressure 90/55 L 98/52 L Pulse Oximetry 98 Oxygen Delivery Method Oxygen Flow Rate 03/17/25 11:51 03/17/25 11:51 03/17/25 12:00 Temperature Pulse Rate 75 Respiratory Rate 22 Blood Pressure 98/51 L 102/53 L Pulse Oximetry 98 Oxygen Delivery Method Oxygen Flow Rate 03/17/25 12:00 03/17/25 12:10 03/17/25 12:10 Temperature Pulse Rate 73 74 Respiratory Rate 22 25 H Blood Pressure 102/56 L Pulse Oximetry 99 98 Oxygen Delivery Method Oxygen Flow Rate 03/17/25 12:20 03/17/25 12:20 03/17/25 12:30 Temperature Pulse Rate 71 74 Respiratory Rate 17 17 Blood Pressure 92/46 L Pulse Oximetry 99 97 Oxygen Delivery Method Oxygen Flow Rate 03/17/25 12:31 03/17/25 12:31 03/17/25 12:44 Temperature Pulse Rate 74 78 Respiratory Rate 30 H 19 Blood Pressure 110/53 L Pulse Oximetry 97 94 Oxygen Delivery Method Oxygen Flow Rate 03/17/25 12:44 03/17/25 13:02 03/17/25 13:30 Temperature Pulse Rate 71 70 Respiratory Rate 28 H 26 H Blood Pressure 112/56 L Pulse Oximetry 86 L 99 Oxygen Delivery Method Oxygen Flow Rate 03/17/25 14:00 03/17/25 14:00 03/17/25 14:11 Temperature Pulse Rate 77 77 Respiratory Rate 17 29 H Blood Pressure 117/54 L Pulse Oximetry 97 98 Oxygen Delivery Method Oxygen Flow Rate 03/17/25 14:11 03/17/25 14:20 03/17/25 14:20 Temperature Pulse Rate 72 Respiratory Rate 24 Blood Pressure 92/55 L 106/53 L Pulse Oximetry 97 Oxygen Delivery Method Oxygen Flow Rate 03/17/25 14:30 03/17/25 14:30 03/17/25 14:41 Temperature Pulse Rate 69 82 Respiratory Rate Blood Pressure 110/54 L Pulse Oximetry 99 96 Oxygen Delivery Method Nasal Cannula Oxygen Flow Rate 2 03/17/25 14:41 03/17/25 14:51 03/17/25 14:51 Temperature Pulse Rate 80 Respiratory Rate Blood Pressure 91/53 L 86/54 L Pulse Oximetry 95 Oxygen Delivery Method Nasal Cannula Oxygen Flow Rate 2 03/17/25 14:52 03/17/25 14:52 03/17/25 15:00 Temperature Pulse Rate 75 72 Respiratory Rate 23 Blood Pressure 86/47 L Pulse Oximetry 95 97 Oxygen Delivery Method Nasal Cannula Nasal Cannula Oxygen Flow Rate 2 2 03/17/25 15:00 03/17/25 15:09 03/17/25 15:09 Temperature Pulse Rate 76 Respiratory Rate 22 Blood Pressure 96/50 L 115/55 L Pulse Oximetry 96 Oxygen Delivery Method Nasal Cannula Nasal Cannula Oxygen Flow Rate 2 2 03/17/25 16:13 03/17/25 16:13 Temperature Pulse Rate 79 Respiratory Rate 23 Blood Pressure 124/59 L Pulse Oximetry 91 Oxygen Delivery Method Room Air Oxygen Flow Rate Oxygen Delivery Method Room Air Oxygen Flow Rate 2 Narrative Exam Narrative: The patient is extremely confused and hard to keep on task. Lungs are clear to auscultation bilaterally Cardiac reveals a regular rate and rhythm Abdomen is soft and essentially nontender. Extremities reveal full range of motion In order to ascertain whether the patient had blood in her out stomach no we dropped a 16 Sinhala NG tube and retrieved thick brownish fluid with no gross blood. Objective Imaging CT scan - chest: Radiologist's impression: [address] [address] [address] Scan Report Signed Patient: Monae Montano MR#: [id number] : 1945 Acct:[id number] Age/Sex: 80 / F Date of Service: 03/17/25 Loc: ED Accession Number: [id number] Procedure: CT angio chest PE protocol Ordering Provider: Nubia Daugherty D.O. PROCEDURE: CT ANGIO CHEST PE PROTOCOL INDICATIONS: high dimer hypoxic TECHNIQUE: After the administration of intravenous contrast, 2 mm thick sections acquired from the pulmonary apices to the posterior costophrenic angles. 3-dimensional maximum intensity projection (MIP) coronal and sagittal reformats were then acquired through the thorax. For radiation dose reduction, the following was used: automated exposure control, adjustment of mA and/or kV according to patient size. COMPARISON: [facility], CT, CT LOW DOSE LUNG CA SCREENING, 03/21/2021, 13:49. FINDINGS: Quality: Diagnostic. Vasculature: Aorta: No aneurysm. Thick atherosclerotic calcified and noncalcified plaques. Pulmonary arteries: No emboli. Lungs: Parenchyma: Diffuse fibrotic changes, most pronounced at the lung apices. Airways: Patent. Pleura: No pneumothorax. No pleural effusion. Mediastinum: Thyroid: Unremarkable. Esophagus: Large hiatal hernia containing majority of stomach. The esophagus is also fluid-filled with dense material. Foci of hyperdense material within the expected location of the esophageal lumen and distal stomach noted. Heart: Normal size. Lymph nodes: No adenopathy. Other: Chest wall: Unremarkable. Upper abdomen: Unremarkable. Bones: No aggressive osseous lesion. IMPRESSION: Dense material within the esophagus and stomach within hiatal hernia could represent active intraluminal hemorrhage. Mediastinal hematoma could appear similar. Pulmonary fibrosis. No pulmonary embolism. Acute findings discussed with Dr. Botnick by myself by telephone at 1:33 p.m. [facility] 03/17/2025. Dictated by: Maverick Cheatham M.D. on 03/17/2025 at 13:15 Approved by: Maverick Cheatham M.D. on 03/17/2025 at 13:33 Labs 03/17/25 16:20 03/17/25 11:22 Labs: Laboratory Results - last 24 hr 03/17/25 03/17/25 03/17/25 11:22 12:00 13:05 WBC 10.2 RBC 4.71 Hgb 12.0 Hct 36.8 MCV 78.1 L MCH 25.5 L MCHC 32.7 RDW 17.5 H Plt Count 226 Neut % (Auto) 77.1 H Lymph % (Auto) 13.8 L [place] % (Auto) 7.2 Eos % (Auto) 1.2 L Baso % (Auto) 0.7 Neut # (Auto) 7800 H Lymph # (Auto) 1400 [place] # (Auto) 700 Eos # (Auto) 100 Baso # (Auto) 100 PT 12.5 INR 1.1 APTT 30 D-Dimer 2183 H Sodium 138 Potassium 3.9 Chloride 100 Carbon Dioxide 30 BUN 21 H Creatinine 0.89 Estimated GFR > 60 BUN/Creatinine Ratio 23.6 H Glucose 111 H Calcium 9.3 Magnesium 2.1 Total Bilirubin 0.4 AST 24 ALT 11 Alkaline Phosphatase 171 H Total Creatine Kinase 44 Troponin I < 0.012 < 0.012 NT-Pro-B Natriuret Pep 175 Total Protein 8.3 H Albumin 4.6 Globulin 3.7 Albumin/Globulin Ratio 1.2 Lipase 51 SARS-CoV-2 (PCR) Negative Influenza A (RT-PCR) Flu a negative Influenza B (RT-PCR) Flu b negative RSV (PCR) Negative 03/17/25 16:20 WBC RBC Hgb 11.3 L Hct 34.9 L MCV MCH MCHC RDW Plt Count Neut % (Auto) Lymph % (Auto) [place] % (Auto) Eos % (Auto) Baso % (Auto) Neut # (Auto) Lymph # (Auto) [place] # (Auto) Eos # (Auto) Baso # (Auto) PT INR APTT D-Dimer Sodium Potassium Chloride Carbon Dioxide BUN Creatinine Estimated GFR BUN/Creatinine Ratio Glucose Calcium Magnesium Total Bilirubin AST ALT Alkaline Phosphatase Total Creatine Kinase Troponin I NT-Pro-B Natriuret Pep Total Protein Albumin Globulin Albumin/Globulin Ratio Lipase SARS-CoV-2 (PCR) Influenza A (RT-PCR) Influenza B (RT-PCR) RSV (PCR) PFSH Tobacco & Substance Use Smoking Status: Former smoker Assessment & Plan Assessment and plan (1) Chest pain: Status: Acute Plan Despite the CT finding, after dropping an NG tube we found no gross blood. After the Ativan sedation wears off I believe the patient is safe to discharge to home. Time-Based Coding :: [TOTAL MINUTES] spent with patient and on the chart (including review of chart, obtaining history, exam, reviewing outside data, placing orders, documenting exam and treatment plan, and counseling patient) on [DATE]. PROFEE Charge Codes Inpatient or Observation consultation: [id number]
== END 2025-03-17 19:24 | disposition home or self-care (01) ==
PROVIDERS: Emergency Provider Emergency Medicine
DX: R07.89 Other chest pain (principal); R79.1 Abnormal coagulation profile; R11.0 Nausea; F03.90 Unspecified dementia, unspecified severity, without behavioral disturbance, psychotic disturbance, mood disturbance, and anxiety
CPT/HCPCS: 36415; 71045; 71275; 80053; 82550; 83690; 83735; 83880; 84484; 85014; 85018; 85025; 85379; 85610; 85730; 87637; 93005; 96361; 96374; 99284; 99285; J2060; J7030; Q9967